=== PATIENT | female | born 1950 | race Caucasian/White ===

== ENCOUNTER 2016-04-06 04:37 | Outpatient (CLI) | payer MEDICARE ==
[2016-04-06] VITALS (7 sets, daily range): BP systolic 123–151; BP diastolic 56–69; Ht 157.5 cm; Wt 93.1 kg
[~2016-04-06] VITALS: Ht 157.5 cm; Wt 93.1 kg
--- NOTE | ~2016-04-06 | HEMODYNAMI ---
PATIENT:JOE TREVIÑO MEDICAL RECORD: [id number] : 46 [id number] ADMISSION DATE: 04/06/16 Generatedon:04/06/201618:11 Patient name: JOE TREVIÑO Patient #: [id number] SSN : : 1950 Date of study: 04/06/2016 Page: Of Hemodynamic Procedure Report Patient Data Patient Demographics Procedure consent was obtained First Name: JOE Gender: Female Last Name: KAMILA : 1950 Patient #: [id number] Age: 66 year(s) Race: Additional ID: [id number] Contact details [address]: [address] [place] [address] [id number] State: [place] City: [place] Zip code: [address] Past Medical History Allergies Allergen Reaction Date Comments Reported Other 04/18/2014 tetracycline, statins allergy Other 04/06/2016 statin,tetracycline,lyalla, allergy Admission Admission Data Admission Date: 04/06/2016 Admission Time: 4:37 Admit Source: Emergency department Room #: D.2128 Height (in.): 62 BSA: 1.9 (m2) Height (cm.): 157.48 BMI: 35.89 (kg/m2) Weight (lbs.): 196.21 Weight (kg.): 89 Lab Results Lab Result Date: 04/06/2016 Lab Result Time: 0:00 Biochemistry Name Units Result Min Max Creatinine mg/dl 0.6 --(*---)-- 0.6 1.3 CBC Name Units Result Min Max Hemoglobin g/dl 11.8 *-(----)-- 13.5 17.5 Procedure Procedure Types Cath Procedure Diagnostic Procedure [facility] w/Coronaries w/Grafts PCI Procedure Coronary Stent Initial Procedure Description Procedure Date Procedure Date: 04/06/2016 Procedure Start Time: 17:48 Procedure End Time: 18:10 Procedure Staff Name Function Óscar Chang MD Performing Physician Shahram Morton RN Nurse John Martinez RT Scrub Farhad Wan RT Monitor Pierre Abbott RT Monitor Procedure Data Cath Procedure Fluoroscopy Diagnostic fluoroscopy Total fluoroscopy Time: 6 time: 6 min min Diagnostic fluoroscopy Total fluoroscopy dose: dose: 1047 mGy 1047 mGy Contrast Material Contrast Material Type Amount (ml) Isovue 300 131 Entry Location Entry Primary Successful Side Size Upsize Upsize Entry Closure Succes sful Closure Location (Fr) 1 (Fr) 2 (Fr) Remarks Device Remarks Femoral Right 5 Fr 6 Fr Vascade artery Short Closure System Estimated blood loss: 10 ml Diagnostic catheters Device Type Used For End Catheter Placement Cordis 5Fr Pigtail Procedure Catheter (MP) Cordis 5Fr JL 4.0 Procedure Catheter (MP) Cordis 5Fr 3DRC Catheter Procedure (MP) Cordis Infinity 5Fr AR 2 Procedure MOD catheter Procedure Medications Medication Administration Route Dosage Oxygen NC 2 l/min Lidocaine 2% added to field 20 Heparin Flush Bag added to field 2 bags (1000units/500ml NS) 0.9% NaCl I.V. 100 ml/hr Fentanyl I.V. 50 mcg Versed I.V. 1 mg Versed I.V. 0.5 mg Fentanyl I.V. 25 mcg Heparin Bolus I.V. 4000 units Versed I.V. 0.5 mg Fentanyl I.V. 25 mcg Plavix P.O. 75 mg Hemodynamics Rest BSA: 1.9 (m2) HGB: 11.8 (g/dl) O2 Consumption: Estimated: 191.83 (ml/min) O2 Con sumption indexed: Estimated:100.96 (ml/min/m) Heart Rate: 92 (bpm) Snapshots Pre Cath Intra NCS Post Cath Vital Signs Time Heart Resp SPO2 etCO2 AS1haht NIBP (mmHg) Rhythm Pain Sedation Rate (ipm) (%) (mmHg) (mmHg) Status Level (bpm) 17:41:40 93 23 98 0 0 176/83(128) NSR 0 (11) 10(A) , No pain 17:45:59 89 17 94 0 0 160/79(113) NSR 0 (11) 10(A) , No pain 17:50:25 87 16 97 0 0 165/73(132) NSR 0 (11) 10(A) , No pain 17:54:47 87 15 98 0 0 151/75(118) NSR 0 (11) 9(A) , No pain 17:59:07 89 15 97 0 0 150/77(108) NSR 0 (11) 9(A) , No pain 18:03:27 90 16 97 0 0 149/79(114) NSR 0 (11) 9(A) , No pain 18:07:47 98 16 98 0 0 151/80(112) NSR 0 (11) 10(A) , No pain Medications Time Medication Route Dose Verified Delivered Reason Notes Effectiveness by by 17:41:55 Oxygen NC 2 Óscar Buffie used for l/min Charlene Morton RN procedure 17:42:01 Lidocaine 2% added 20ml Óscar Óscar for local to vial Charlene Chang MD anesthetic field 17:42:07 Heparin Flush added 2 Óscar Óscar used for Bag to bags Charleen Chang MD procedure (1000units/500ml field NS) 17:42:16 0.9% NaCl I.V. 100 Óscar Buffie Per physician ml/hr Charlene Morton RN 17:48:12 Versed I.V. 1 mg Óscar Buffie for sedation Charlene Morton RN 17:48:46 Fentanyl I.V. 50 Óscar Buffie for sedation mcg Charlene Morton RN 17:50:58 Versed I.V. 0.5 Óscar Buffie for sedation mg Charlene Morton RN 17:51:02 Fentanyl I.V. 25 Óscar Buffie for sedation mcg Charlene Morton RN 17:57:23 Heparin Bolus I.V. 4000 Óscar Poolie for units Charlene Morton RN anticoagulation 18:00:05 Versed I.V. 0.5 Óscar Buffie for sedation mg Charlene Morton RN 18:00:08 Fentanyl I.V. 25 Óscar Buffie for sedation mcg Charlene Morton RN 18:07:29 Plavix P.O. 75 mg Óscar Poolie for Charlene Morton RN antiplatelet therapy Procedure Log Time Note 17:05:24 Pierre Abbott RT(R) (CV) sent for patient. Start room use. 17:24:00 Admit Source: Emergency department 17:24:21 Diagnostic Cath status Urgent 17:24:34 Time tracking: Regular hours 17:24:39 Plan of Care:Hemodynamics will remain stable., Cardiac rhythm will remain stable., Comfort level will be maintained., Respiratory function will remain adequate., Patient/ family verbilizes understanding of procedure., Procedure tolerated without complication., Recovers from procedure without complications.. 17:24:45 Patient received from PCU to CCL 2 Alert and oriented. Tansferred to table in Supine position. 17:24:46 Warm blankets applied, and estevan hugger turned on for patient comfort. 17:24:46 Correct patient and procedure confirmed by team. 17:24:47 Signed procedure consent form obtained from patient. 17:24:48 ECG and BP/O2 sat monitors applied to patient. 17:40:22 Vital chart was started 17:41:55 Oxygen 2 l/min NC was given by Shahram Morton RN; used for procedure; 17:42:01 Lidocaine 2% 20ml vial added to field was given by Óscar Chang MD; for local anesthetic; 17:42:07 Heparin Flush Bag (1000units/500ml NS) 2 bags added to field was given by Óscar Chang MD; used for procedure; 17:42:16 0.9% NaCl 100 ml/hr I.V. was given by Shahram Morton RN; Per physician; 17:42:25 Baseline sample Acquired. 17:42:35 Rhythm: sinus rhythm 17:45:45 Pre-procedure instructions explained to patient. 17:45:46 Pre-op teaching completed and patient verbalized understanding. 17:45:47 Family in waiting room. 17:45:48 Patient NPO since Midnight. 17:46:13 Patient allergic to Other allergystatin,tetracycline,lyalla, 17:46:16 Is the patient allergic to Iodine/contrast media? No. 17:46:19 Is patient on blood thinner?Yes 17:46:21 ACC The patient was administered the following blood thiners within the last 24 hours: ACCPlavix 17:46:26 Patient diabetic? Yes. 17:46:27 If diabetic: On Metformin? No 17:46:32 Previous problem with sedation/anesthesia? No ? 17:46:33 Snore? No 17:46:36 Sleep apnea? No 17:46:37 Deviated septum? No 17:46:38 Opens mouth fully? Yes 17:46:39 Sticks out tongue? Yes 17:46:43 Airway obstruction? Yes copd 17:46:47 Dentures? Yes out 17:46:50 Pre procedure: right dorsailis pedis pulse 1+ Palpable, but thready & weak; easily obliterated 17:46:54 Patient pain scale 4/10 ?. 17:46:58 IV patent on arrival in right hand with 0.9% NaCl at [facility]. 17:47:22 Lab Result : Creatinine 0.6 mg/dl 17:47:22 Lab Result : Hemoglobin 11.8 g/dl 17:47:25 Lab results completed and on chart. 17:47:28 Right groin area was prepped with chlora-prep and draped in sterile fashion 17:47:29 Alarms reviewed by R. N. 17:47:30 Sharps counted by scrub and verified by R.N. 17:47:34 Use device set Femoral Dx 17:47:35 Tegaderm 4 x 4 opened to sterile field. 17:47:36 Acist Manifold opened to sterile field. 17:47:36 Acist Hand Control opened to sterile field. 17:47:37 Acist Syringe opened to sterile field. 17:47:38 Bag Decanter opened to sterile field. 17:47:38 Cardinal Cath Pack opened to sterile field. 17:47:39 Terumo 5Fr [place] Sheath opened to sterile field. 17:47:39 St Levi 260cm J .035 wire opened to sterile field. 17:47:40 Cordis Infinity 5Fr Multipack catheter opened to sterile field. 17:47:47 --------ALL STOP TIME OUT------ 17:47:48 Final Timeout: patient, procedure, and site verified with staff and physician. All members of the team are in agreement. 17:47:49 Right groin site verified by team. 17:47:52 Physical assessment completed. ASA score P 2 - A patient with mild systemic disease as per Óscar Chang MD. 17:47:55 Sedation plan: IV Moderate Sedation Versed, Fentanyl 17:48:02 Procedure started. 17:48:02 Full Disclosure recording started 17:48:05 Local anesthetic to right femoral artery with Lidocaine 2% by Óscar Chang MD.INITIAL ACCESS ONLY 17:48:12 Versed 1 mg I.V. was given by Shahram Morton RN; for sedation; 17:48:13 A 5 Fr sheath was inserted into the Right Femoral artery 17:48:17 j wire advanced. 17:48:46 Fentanyl 50 mcg I.V. was given by Shahram Morton RN; for sedation; 17:50:00 A Cordis 5Fr Pigtail Catheter (MP) was advanced over the wire and used for Procedure. 17:50:01 Zero performed for pressure channel P1 17:50:04 Zero performed for pressure channel P1 17:50:08 Zero performed for pressure channel P1 17:50:10 Zero performed for pressure channel P1 17:50:13 Zero performed for pressure channel P1 17:50:18 Zero performed for pressure channel P1 17:50:29 LV angiography performed. 17:50:30 LV gram done using RODRIGEZ 17:50:32 Zero performed for pressure channel P1 17:50:38 EF : 60 % 17:50:42 Zero performed for pressure channel P1 17:50:54 Injector settings: Ml/sec: 10, Volume: 20, 17:50:56 Catheter exchanged over wire. 17:50:58 Versed 0.5 mg I.V. was given by Shahram Morton RN; for sedation; 17:51:00 A Cordis 5Fr JL 4.0 Catheter (MP) was advanced over the wire and used for Procedure. 17:51:02 Fentanyl 25 mcg I.V. was given by Shahram Morton RN; for sedation; 17:51:17 LCA angiography performed. 17:52:03 Catheter removed. 17:52:11 A Cordis 5Fr 3DRC Catheter (MP) was advanced over the wire and used for Procedure. 17:52:37 TAY to LAD angiography performed. 17:53:09 Catheter removed. 17:53:39 A Cordis Infinity 5Fr AR 2 MOD catheter was advanced over the wire and used for Procedure. 17:55:04 SVG to Circ angiography performed. 17:55:42 Quintana Whisper J 300cm 0.014 guide wire opened to sterile field. 17:55:43 Terumo 6Fr [place] Sheath opened to sterile field. 17:55:44 Flyr BasixCompak Inflation Kit opened to sterile field. 17:55:48 SVG to RCA angiography performed. 17:56:34 Cordis 6FR XBLAD 3.5 guide catheter opened to sterile field. 17:57:07 Catheter removed. 17:57:09 Proceeding to intervention. 17:57:23 Heparin Bolus 4000 units I.V. was given by Shahram Morton RN; for anticoagulation; 17:57:25 Sheath upsized to a 6 Fr Short. 17:57:41 ACC PCI Site: pLAD has 80% stenosis. 17:57:45 ACC Pre-intervention INDIGO Flow is 3. 17:57:53 6 Fr XBLAD 3.5 guide catheter was inserted over the wire 17:58:23 WHISPER wire advanced. 17:59:56 Inflation number: 1 A EAP Technology Systemsick 3.0 X 20 balloon was prepped and advanced across the Prox LAD, then inflated to 19 SERA for 0:10 (min:sec). 17:59:58 Balloon removed over the wire. 18:00:05 Versed 0.5 mg I.V. was given by Shahrma Morton RN; for sedation; 18:00:08 Fentanyl 25 mcg I.V. was given by Shahram Morton RN; for sedation; 18:03:47 Inflation Number: 2 A Pivottronic Resolute 3.5 X 18 stent was prepped and advanced across the Prox LAD. The stent was deployed at 13 SERA for 0:10 (min:sec). 18:04:40 ACC Post-intervention INDIGO Flow is 3. 18:04:41 Stent catheter was removed intact over wire. 18:04:45 Wire removed. 18:04:46 Guide catheter removed. 18:05:43 Vascade 6/7 Fr Closure Device opened to sterile field. 18:06:00 Sheath removed intact; hemostasis achieved with Vascade Closure System to the Right Femoral artery. 18:06:03 Procedure ended.(Physican Out) 18:06:59 Fluoroscopy time 06.00 minutes. 18:07:05 Flurop Dose total: 1047 18:07:05 Fluoroscopy dose: 1047 mGy 18:07:14 Contrast amount:Isovue 300 131ml. 18:07:20 Sharps counted by scrub and verified by R.N. 18:07:23 Insertion/operative site no bleeding no hematoma. 18:07:29 Plavix 75 mg P.O. was given by Shahram Morton RN; for antiplatelet therapy; 18:07:29 Post-op/insertion site Right Femoral artery dressed using a 4 x 4 and Tegaderm. 18:07:34 Post right femoral artery:stable 18:07:38 Post Procedure Pulses reassessed and unchanged 18:07:44 Post-procedure physical assessment completed. ASA score P 2 - A patient with mild systemic disease as per Óscar Chang MD. 18:08:31 Patient Weight : 196.21 lbs 18:08:51 Patient Height : 62 inches 18:09:23 Procedure type changed to Cath procedure, Diagnostic procedure, LHC, LHC w/Coronaries w/Grafts, PCI procedure, Coronary Stent Initial 18:10:02 Post procedure rhythm: sinus rhythm 18:10:06 Estimated blood loss: 10 ml 18:10:07 Post procedure instruction explained to patient.Patient verbalizes understanding. 18:10:08 Patient needs reinforcement of post procedure teaching. 18:10:10 Procedure and supply charges have been captured, reviewed, submitted and are correct. 18:10:11 Vital chart was stopped 18:10:12 See physician's report for complete and final results. 18:10:16 Report given to PCU. 18:10:26 Patient transfered to PCU with Bed. 18:10:30 Procedure ended. 18:10:30 Full Disclosure recording stopped 18:10:38 ACC-PCI Only Patient was given prescriptions, or instructed by Óscar Chang MD to start/continue the following medications upon discharge: Aspirin, Plavix 18:10:41 End room use (Document Last) Intervention Summary Intervention Notes Time ActionType Lesion and Equipment Action# Pressure Duration Attributes Used 17:59:56 Inflate Prox LAD [place] 1 19 00:10 balloon Sci [place] 3.0 X 20 balloon 18:03:47 [address] stent Prox LAD Medtronic 2 13 00:10 Resolute 3.5 X 18 stent Device Usage Item Name Manufacture Quantity Catalog Number Hospital Part Current Mini [facility] Lot# / Charge Number Stock Stock Serial# Code Tegaderm 4 3M 1 [id number] 170536 815613 599834 5 x 4 Acist Acist 1 93723 757658 161615 429437 5 Manifold Medical Systems Inc Acist Hand Acist 1 07575 794314 996192 289320 5 Control Medical Systems Inc Acist Acist 1 16065 584629 289933 046407 20 Syringe Medical Systems Inc Bag Microtek 1 2002S 325430 70548 153724 5 Decanter Medical Inc. Cardinal Cardinal 1 [id number] 357356 76581 450432 5 Cath Pack Health Terumo 5Fr Terumo 1 [id number] 218012 523748 046612 [address] [facility] Levi 1 691870 690069 023756 759314 30 260cm J .035 wire Cordis Cardinal 1 [id number] 513376 81026 721934 30 Infinity Health 5Fr Multipack catheter Cordis 5Fr Cardinal 1 639024 5 Pigtail Health Catheter (MP) Cordis 5Fr Cardinal 1 071190 5 JL 4.0 Health Catheter (MP) Cordis 5Fr Cardinal 1 891692 5 3DRC Health Catheter (MP) Cordis Cardinal 1 [id number] 447226 263970 799985 20 Infinity Health 5Fr AR 2 MOD catheter Quintana Quintana 1 [id number] 083564 700875 884001 5 Whisper J Vascular 300cm 0.014 guide wire Terumo 6Fr Terumo 1 [id number] 808876 973194 764307 40 [place] Sheath [facility] 1 PT7462 912262 489404 270534 15 [id number] EffRx PharmaceuticalsIntermountain Medical Centerfarmaciamarket Medical Inflation Kit Cordis 6FR Cardinal 1 [id number] 598049 252070 467489 10 XBLAD 3.5 Health guide catheter [facility] Sci [facility] 1 [id number] 988841 939161 646198 1 Aarki 3.0 X 20 balloon Medtronic Medtronic 1 [id number] 137886 890465 9 [id number] Resolute 3.5 X 18 stent Vascade 08/19 Cardiva 1 [id number] 184541 239359 823185 5 Fr Closure Medical, Device Inc. Signature Audit [place] Stage Time Signature Unsigned Intra-Procedure 04/06/2016 Pierre Abbott 6:11:25 PM RT(R) (CV) Signatures Monitor : Farhad Wan RT Signature : Date : Time : Monitor : Pierre Abbott RT Signature : Date : Time : [address] [place] [address]
[2016-04-06 04:20] LABS: BASOPHILS 0 % (0.0-2.0); EOSINOPHILS 1.4 % (0-7); HEMATOCRIT 34.4 % (36.0-48.0); HEMOGLOBIN 11.8 g/dL (12-16); IMMATURE GRANULOCYTES 0.5 % (0-5); LYMPHOCYTES 24.5 % (15-50); MCH 29.6 pg (26.0-34.0); MCHC 34.3 g/dL (31.0-37.0); MCV 86.4 fL (80.0-100.0); MEAN PLATELET VOLUME 9.4 fL (7.4-10.4); MONOCYTES 7.6 % (2-11); PLATELET COUNT 103 10x3/uL (130-400); RBC 3.98 10x6/uL (4.00-5.40); RDW 14.5 % (11.5-14.5); WBC 5.6 10x3/uL (4.8-10.8)
[2016-04-06 04:21] LABS: APTT 32.3 SECONDS (22.8-39.4); INR 1.12 (0.85-1.17); PROTIME 14.3 SECONDS (11.6-15.0)
[2016-04-06 04:30] LABS: ALBUMIN 3.6 g/dL (3.4-5.0); ALKALINE PHOSPHATASE 153 U/L (46-116); ALT (SGPT) 46 U/L (10-68); BILIRUBIN - TOTAL 0.54 mg/dL (0.2-1.3); CALC OSMOLALITY 282 mosm/kg (275-300); CALCIUM 9.4 mg/dL (8.5-10.1); CARBON DIOXIDE 29.6 mmol/L (21.0-32.0); CHLORIDE - SERUM 101 mmol/L (98-107); CREATININE - SERUM 0.6 mg/dL (0.6-1.3); GLUCOSE 192 mg/dL (74-106); POTASSIUM - SERUM 3.9 mmol/L (3.5-5.1); SODIUM 140 mmol/L (136-145); UREA NITROGEN 9 mg/dL (7-18); eGFR NON AFRICAN AMERICAN > 90 mL/min (90-120)
[~2016-04-06 04:37] MED LIST: ADVAIR 100/501 DISK INH; ADVAIR 250/501 DISK INH; ASPIRIN 81 MG E81 MG PO; EXFORGE 5-160 M1 TAB PO; GLIMEPIRIDE1 MG PO; GLUCOPHAGE500 MG PO; HUMALOG MIX 50/53 ML SC; HYDROCODONE-APA1 TAB PO; IMDUR30 MG PO; ISOSORBIDE MONO30 M1 PO; KENALOG 0.1% CR15 GM TP; LANTUS SOL100 UNIT/1 SQ; LEVOTHROID50 MCG PO; PLAVIX75 MG PO; PRINZIDE 20/12.1 TA1; SYNTHROID75 MCG PO; TOPROL XL25 MG; TOUJEO SOL300 UNIT/1 SC; WELCHOL625 MG PO; ZOVIRAX200 MG PO
[2016-04-06 04:40] LABS: CHOL - HDL RATIO 4.6 ratio (2.3-4.1); CHOLESTEROL, TOTAL 216 mg/dL (0-200); CKMB 2.6 U/L (0.0-3.6); CREATINE KINASE 91 UL (21-215); HDL CHOLESTEROL 47 mg/dL (32-96); LDL CHOLESTEROL 146 mg/dL (0-100); LDL-HDL RATIO 3.1 ratio (1.5-3.5); PRO BNP 178 pg/mL (0-125); TRIGLYCERIDE 116 mg/dL (30-200)
[2016-04-06 04:41] LABS: TROPONIN-I < 0.017 ng/mL (0.000-0.060)
--- NOTE | 2016-04-06 05:17 | NUR ---
PT ARRIVED VIA W/C FROM ER WITH CHELSEA NAGY. SPOUSE AT BEDSIDE. WILL CONTINUE TO MONITOR.
[2016-04-06] MEDS ORDERED: PLAVIX75 MG PO (05:55)
[2016-04-06] MEDS ORDERED: NOVOLOG100 U/M1 SQ (05:57)
--- NOTE | 2016-04-06 06:00 | NUR ---
VSS. SR PER CM HR 84. ADMISSION ASSESSMENT. HISTORY AND HOME MED LIST COMPLETED. PT NPO UNTIL SEEN BY DR MENSAH. IV TO LAC SL. BED ALARM IN USE AND SPOUSE AT BEDSIDE. SR UP X2, CALL LIGHT WITHIN REACH. R SIDED WEAKNESS NOTED.
--- NOTE | 2016-04-06 07:33 | NUR ---
AM ROUNDING DONE, AROUSES EASILY. DENIES ANY PAIN AT PRESENT TIME. ON HEART MONITOR SHOWING SR, HR 83. ON ROOM AIR. SALINE LOCK SEEN TO LEFT FA. SPOUSE AT BEDSIDE. NPO AT PRESENT TIME. WILL CONTINUE TO MONITOR.
--- NOTE | 2016-04-06 07:49 | NUR ---
EKG DONE ORDERED AND PLACED ON CHART.
--- NOTE | 2016-04-06 08:57 | NUR ---
PERMITS FOR HEART CATH SIGNED AND WITNESSED.
--- NOTE | 2016-04-06 12:32 | NUR ---
INFORMED PATIENT THAT SHE COULD EAT A LIGHT LUNCH THEN NPO. FSBS IS 131, NO COVERAGE PER SLIDING SCALE.
--- NOTE | 2016-04-06 16:33 | NUR ---
STILL NPO. PRE-OP MEDS GIVEN. FSBS IS 167, WILL HOLD INSULIN NPO.
--- NOTE | 2016-04-06 17:06 | NUR ---
TO SUMMER CLERK VIA BED.
--- NOTE | 2016-04-06 18:31 | NUR ---
1830-RECEIVED BACK FROM [employer] WITH DRESSING, DRY AND INTACT, TO RIGHT GROIN. VERY SLEEPY, PLACED ON 2L PER NC. AT BEDSIDE. PPP AND STRONG. LAYING FLAT X 4 HOURS. WILL MONITOR.
--- NOTE | 2016-04-06 19:00 | NUR ---
BEDSIDE REPORT RECIEVED, PT LAYING FLAT IN BED PER ORDERS. AT BEDSIDE. WILL MONITOR.
--- NOTE | 2016-04-06 19:00 | NUR ---
INITIAL ASSESSMENT COMPLETE, PLEASE SEE FLOW SHEETS FOR DETAILS. WILL CONTINUE TO MONITOR.
--- NOTE | 2016-04-06 21:00 | NUR ---
RESTING, LAYING FLAT PER ORDERS. ATTEMPTED TO USE BED [place] AND WAS UNSUCCESSFUL. PT ASKED WHEN SHE WOULD BE ABLE TO SIT UP AND WAS TOLD AT 1030. STATED SHE WOULD LIKE TO GO HOME TONIGHT WELL. WILL CONTINUE TO MONITOR.
--- NOTE | 2016-04-07 01:03 | NUR ---
PT REATING, BED LOW AND LOCKED, CALL LIGHT IN REACH. ALARM ON. DENIES PAIN/NEEDS AT THIS TIME. WILL CONTINUE TO MONITOR.
--- NOTE | 2016-04-07 02:47 | NUR ---
PT SLEEPING, WILL CONTINUE TO MONITOR.
[2016-04-07 05:05] LABS: BASOPHILS 0.2 % (0.0-2.0); EOSINOPHILS 0.7 % (0-7); HEMATOCRIT 30.9 % (36.0-48.0); HEMOGLOBIN 10.5 g/dL (12-16); IMMATURE GRANULOCYTES 0.6 % (0-5); LYMPHOCYTES 15.9 % (15-50); MCV 88.3 fL (80.0-100.0); MEAN PLATELET VOLUME 9.5 fL (7.4-10.4); MONOCYTES 10.4 % (2-11); NEUTROPHILS 72.2 % (40-80); PLATELET COUNT 92 10x3/uL (130-400); RDW 14.7 % (11.5-14.5); WBC 5.4 10x3/uL (4.8-10.8)
[2016-04-07 05:12] VITALS: BP 139/75
[2016-04-07 05:13] LABS: CALC OSMOLALITY 282 mosm/kg (275-300); CALCIUM 8.8 mg/dL (8.5-10.1); CARBON DIOXIDE 30.3 mmol/L (21.0-32.0); CHLORIDE - SERUM 104 mmol/L (98-107); CREATININE - SERUM 0.7 mg/dL (0.6-1.3); GLUCOSE 181 mg/dL (74-106); SODIUM 139 mmol/L (136-145); eGFR NON AFRICAN AMERICAN 88 mL/min (90-120)
[2016-04-07 05:15] LABS: UREA NITROGEN 12 mg/dL (7-18)
[2016-04-07 05:42] LABS: PLATELET ESTIMATE DECREASED
--- NOTE | 2016-04-07 07:00 | NUR ---
RECEIVED REPORT. ASSUMED CARE OF PATIENT. CALL LIGHT WITHIN REACH. SITTING UP IN BED. READY TO BE DISCHARGED TO HOME THIS AM. NO S/S HEMATOMA TO RIGHT GROIN S/P CATH YESTERDAY. PEDAL PULSES PATENT BILATERALLY. RESP EVEN AND UNLABORED. NO DISTRESS.
[2016-04-07 08:31] VITALS: BP 133/67
[2016-04-07] MEDS ORDERED: PRINZIDE 20/12.1 TA1 PO (10:31)
[2016-04-07] MEDS ORDERED: TOPROL XL25 MG PO (10:31)
--- NOTE | 2016-04-07 11:00 | NUR ---
1140 20 GAUGE IV SITE TO RIGHT FOREARM D/C'D. CATHETER TIP INTACT. NO BLEEDING FROM SITE AFTER 2 MINUTES PRESSURE HELD DUE TO PLAVIX USER. TOLERATED IV SITE D/C WELL. 2X2 GAUZE APPLIED AND SECURED WITH TAPE. 1045 DISCHARGE INSTRUCTION PROVIDED TO PATIENT AND HER SPOUSE. VERBALIZED ALL INSTRUCTIONS.
--- NOTE | 2016-04-07 11:07 | NUR ---
PATIENT LEFT UNIT VIA WHEELCHAIR. PATIENT DISCHARGED TO HOME. PATIENT LEFT UNIT WITH ALL PERSONAL BELONGINGS. NO DISTRESS UPON LEAVING UNIT.
--- NOTE | 2016-04-13 14:16 | DS ---
PATIENT:JOE TREVIÑO :46 MEDICAL RECORD: [id number] DISCHARGE SUMMARY ADMISSION DATE: 04/06/16 DISCHARGE DATE: 04/07/16 DISCHARGE DIAGNOSES: 1. Unstable angina. 2. Coronary artery disease. 3. Percutaneous transluminal coronary angioplasty stent left anterior descending this admission. HOSPITAL COURSE: Ms. Treviño presents with anginal symptomatology, found to have significant disease with LAD leading into a non-grafted LAD diagonal and underwent successful PTCA stent of this territory. She had an uneventful postoperative course with no further anginal symptomatology. She was discharged home with no change in her medications as she is already on aspirin and Plavix. She will follow up with [facility] in 1 month. TRANSINT:[id number] Voice Confirmation ID: [id number] DOCUMENT ID: [id number] CARLITA MENSAH MD at 1416 CC: [id number] DICTATION DATE: 04/06/16 180 CULLET CRUSHER AND WASHER: 04/07/16 0259 DEP CLI 04/07/[address] [address]
--- NOTE | 2016-04-13 14:16 | OP ---
PATIENT NAME: JOE TREVIÑO MEDICAL RECORD: [id number] :46 LOCATION:D.OPS ADMISSION DATE: SURGEON: CARLITA MENSAH MD DATE OF OPERATION: 04/06/2016 PROCEDURES: 1. PTCA stent LAD. 2. Left heart catheterization. 3. Selective coronary angiography. 4. Vein graft angiography. 5. TAY angiography. 6. Left ventriculogram. INDICATION: Angina, unstable coronary artery disease. PROCEDURE IN DETAIL: After informed consent was obtained and after detailed explanation of risks, benefits as well as alternative therapies, the patient elected to proceed with angiogram and angioplasty. The right femoral area was prepped and draped in normal sterile fashion. The right femoral artery was cannulated via modified Seldinger technique with placement of 6-Albanian sheath. All catheters exchanged through this sheath. FINDINGS: Left ventriculogram was performed in standard 30-degree RODRIGEZ view, reveals good cardiac wall motion throughout all segments. Overall ejection fraction estimated at 60%. SELECTIVE CORONARY ANGIOGRAPHY: 1. Left main has no significant angiographic disease. 2. Left anterior descending leads into a non-grafted diagonal. There is a previously placed stent with 70% to 80% in-stent restenosis. 3. Left circumflex is totally occluded. 4. The LAD is then totally occluded after the diagonal. 5. TAY to the LAD is widely patent. 6. Vein graft to the circumflex is widely patent. 7. Right coronary is totally occluded. 8. Vein graft to the right coronary is widely patent with no significant disease in the vein graft or the distal RCA. PTCA stent of the proximal LAD: The stent used is a 3.5 x 18 mm Resolute taken to 19 atmospheres. Result was 0% residual stenosis. OVERALL IMPRESSION: Successful percutaneous transluminal coronary angioplasty stent of the left anterior descending going from 80% initial stenosis to 0% residual. TRANSINT:[id number] Voice Confirmation ID: [id number] DOCUMENT ID: [id number] OPERATIVE REPORT [id number] CLARAJOE JAIME CARLITA MENSAH MD at 1416 CC: [id number] DICTATION DATE: 04/06/16 1807 SILVER MINER: 04/06/161999 [facility] CLI 04/07/16 [place] [address]
== END 2016-04-07 11:07 | disposition home or self-care (01) ==
LOC: OBSVTIME → D.ER 04:37 → D.OPS 04:37 → D.M2 04:37 → OBSVTIME 04:37 → D.M2 04:37 → EDSTATUS 15:45 → D.OPS 04-07 11:07 → D.M2 04-07 11:07
PROVIDERS: Family Medicine
DX: I25.110 Atherosclerotic heart disease of native coronary artery with unstable angina pectoris (principal); I10 Essential (primary) hypertension; E11.9 Type 2 diabetes mellitus without complications; Z79.4 Long term (current) use of insulin; E78.5 Hyperlipidemia, unspecified; J44.9 Chronic obstructive pulmonary disease, unspecified; Z95.5 Presence of coronary angioplasty implant and graft; Z95.1 Presence of aortocoronary bypass graft; Z87.891 Personal history of nicotine dependence
CPT/HCPCS: 93459; C9600

== ENCOUNTER → 2016-05-28 18:00 | Outpatient (CLI) | payer MEDICARE ==
[~2016-05-28] VITALS: Ht 157.5 cm; Wt 90.7 kg
[2016-05-28] VITALS (11 sets, daily range): BP systolic 106–122; BP diastolic 52–69; Ht 157.5 cm; Wt 90.7 kg
--- NOTE | ~2016-05-28 | HEMODYNAMI ---
PATIENT:JOE TREVIÑO MEDICAL RECORD: [id number] : 46 LOCATION:[facility] [address] [facility]# [id number] ADMISSION DATE: 05/28/16 Generatedon:05/28/201612:54 Patient name: JOE TREVIÑO Patient #: [id number] SSN : : 1950 Date of study: 05/28/2016 Page: Of Hemodynamic Procedure Report Patient Data Patient Demographics Procedure consent was obtained First Name: JOE Gender: Female Last Name: KAMILA : 1950 Patient #: [id number] Age: 66 year(s) Race: Additional ID: [id number] Contact details [address]: [address] [place] [address] [id number] State: [place] City: [place] Zip code: [address] Past Medical History Allergies Allergen Reaction Date Comments Reported Other 04/18/2014 tetracycline, statins allergy Other 04/06/2016 statin,tetracycline,lyalla, allergy Admission Admission Data Admission Date: 05/28/2016 Admission Time: 2:04 Room #: D.2122 Weight (lbs.): 200.62 Weight (kg.): 91 Lab Results Lab Result Date: 05/28/2016 Lab Result Time: 0:00 Biochemistry Name Units Result Min Max BUN mg/dl 12 --(-*--)-- 7 18 Creatinine mg/dl 0.6 --(*---)-- 0.6 1.3 CBC Name Units Result Min Max Hemoglobin g/dl 8.6 *-(----)-- 13.5 17.5 Procedure Procedure Types Cath Procedure Diagnostic Procedure LHC LHC w/Coronaries w/Grafts PCI Procedure PTCA Initial Miscellaneous Procedures Moderate Sedation up to 45 minutes Procedure Description Procedure Date Procedure Date: 05/28/2016 Procedure Start Time: 12:17 Procedure End Time: 12:43 Procedure Staff Name Function Frandy Patterson MD Performing Physician Amber Nix RT Scrub Shahram Morton RN Nurse Sarmad Macdonald RT Monitor Procedure Data Cath Procedure Fluoroscopy Diagnostic fluoroscopy Total fluoroscopy Time: 6.5 time: 6.5 min min Diagnostic fluoroscopy Total fluoroscopy dose: dose: 1413 mGy 1413 mGy Contrast Material Contrast Material Type Amount (ml) Isovue 300 104 Entry Location Entry Primary Successful Side Size Upsize Upsize Entry Closure Succes sful Closure Location (Fr) 1 (Fr) 2 (Fr) Remarks Device Remarks Femoral Right 5 Fr 6 Fr Exoseal artery Short Diagnostic catheters Device Type Used For End Catheter Placement Cordis 5Fr JL 4.0 Left Coronary Catheter (MP) Angiography Diagnostic Infinity 5Fr SVG Angiography AR 2 MOD catheter Diagnostic Infinity 5Fr SVG Angiography IM catheter Cordis 5Fr Pigtail LV Angiography Catheter (MP) Procedure Complications No complications Procedure Medications Medication Administration Route Dosage Oxygen NC 3 l/min Lidocaine 2% added to field 20 Heparin Flush Bag added to field 2 bags (1000units/500ml NS) 0.9% NaCl I.V. 100 ml/hr Versed I.V. 1 mg Fentanyl I.V. 50 mcg Versed I.V. 1 mg Fentanyl I.V. 50 mcg Heparin Bolus I.V. 9000 units Fentanyl I.V. 25 mcg Hemodynamics Rest HGB: 8.6 (g/dl) Heart Rate: 72 (bpm) Pressure Samples Time Site Value (mmHg) Purpose Heart Use Rate(bpm) 12:26 LV 135/11,34 EDP 73 12:26 AO 128/63(88) Pullback 72 12:26 LV 128/10,28 Pullback 72 Gradients Valve Time Site 1 Site 2 Mean SEP/DFP Peak To Heart Use (mmHg) (sec/min) Peak Rate (mmHg) (bpm) Aortic 12:26 LV AO 5 14 0 72 128/10,28 128/63(88) Calculations Valve P-P Mean Valve Index Valve Source Name Gradient Area Flow (cm2) Aortic 0 5 0 5 Snapshots Pre Cath Intra NCS Post Cath Vital Signs Time Heart Resp SPO2 NIBP (mmHg) Rhythm Pain Sedation Rate (ipm) (%) Status Level (bpm) 11:57:50 70 23 100 159/80(120) NSR 0 (11) 10(A) , No pain 12:02:07 72 20 100 149/79(112) NSR 0 (11) 10(A) , No pain 12:06:19 69 19 98 135/80(99) NSR 0 (11) 10(A) , No pain 12:10:24 68 18 99 144/80(108) NSR 0 (11) 10(A) , No pain 12:14:36 67 16 99 127/73(101) NSR 0 (11) 9(A) , No pain 12:18:40 70 16 98 140/80(102) NSR 0 (11) 9(A) , No pain 12:22:50 71 17 98 141/74(102) NSR 0 (11) 9(A) , No pain 12:27:00 72 18 99 135/74(103) NSR 0 (11) 9(A) , No pain 12:31:08 72 16 99 141/76(118) NSR 0 (11) 9(A) , No pain 12:35:15 73 17 99 141/81(106) NSR 0 (11) 9(A) , No pain 12:39:25 70 16 98 133/75(106) NSR 0 (11) 9(A) , No pain 12:43:31 70 16 98 142/76(102) NSR 0 (11) 10(A) , No pain Medications Time Medication Route Dose Verified Delivered Reason Notes Effectiveness by by 12:02:28 Oxygen NC 3 Frandy Buffie used for l/min Amarjit Morton RN procedure 12:02:35 Lidocaine 2% added 20ml Frandy Frandy for local to vial Amarjit Patterson MD anesthetic field 12:02:42 Heparin Flush added 2 Frandy Frandy used for Bag to bags Amarjit Patterson MD procedure (1000units/500ml field NS) 12:02:50 0.9% NaCl I.V. 100 Frandy Buffie Per physician ml/hr Amarjit Morton RN 12:09:40 Versed I.V. 1 mg Frandy Buffie for sedation Amarjit Morton RN 12:09:46 Fentanyl I.V. 50 Frandy Buffie for sedation mcg Amarjit Morton RN 12:17:48 Versed I.V. 1 mg Frandy Buffie for sedation Amarjit Morton RN 12:17:52 Fentanyl I.V. 50 Frandy Buffie for sedation mcg Amarjit Morton RN 12:32:35 Heparin Bolus I.V. 9,000 Frandy Buffie for verifi ed units Amarjit Morton RN anticoagulation with dr patterson 12:37:38 Fentanyl I.V. 25 Frandy Omalley for sedation [facility] Amarjit Morton RN Procedure Log Time Note 11:30:37 Shahram Morton RN sent for patient. Start room use. 11:49:32 ACC Patient presents with Unstable Angina CCS Anginal Class 3--Marked limitation of physical activity, angina occurs with ordinary activity.. 11:49:34 Diagnostic Cath status Urgent 11:50:29 Time tracking: Regular hours 11:50:33 Plan of Care:Hemodynamics will remain stable., Cardiac rhythm will remain stable., Comfort level will be maintained., Respiratory function will remain adequate., Patient/ family verbilizes understanding of procedure., Procedure tolerated without complication., Recovers from procedure without complications.. 11:50:38 Patient received from PCU to CCL 2 Alert and oriented. Tansferred to table in Supine position. 11:50:49 Warm blankets applied, and estevan hugger turned on for patient comfort. 11:50:50 Correct patient and procedure confirmed by team. 11:50:54 Signed procedure consent form obtained from patient. 11:50:55 ECG and BP/O2 sat monitors applied to patient. 11:56:41 Vital chart was started 11:56:42 Full Disclosure recording started 12:00:29 Baseline sample Acquired. 12:00:34 Rhythm: sinus rhythm 12:00:47 H&P Date Dictated: 05/28/2016 Within 30 days and on chart.. 12:00:48 Pre-procedure instructions explained to patient. 12:00:48 Pre-op teaching completed and patient verbalized understanding. 12:00:59 Family in patients room. 12:01:00 Patient NPO since Midnight. 12:02:00 Is the patient allergic to Iodine/contrast media? No. 12:02:02 Is patient on blood thinner?Yes 12:02:08 ACC The patient was administered the following blood thiners within the last 24 hours: ACCPlavix 12:02:10 Patient diabetic? Yes. 12:02:11 If diabetic: On Metformin? Yes 12:02:14 If on Metformin: Last Dose? 05/27/2016 12:02:16 ----Pre-sedation anethsthesia assessment.---- 12:02:18 Previous problem with sedation/anesthesia? No ? 12:02:22 Snore? No 12:02:24 Sleep apnea? No 12:02:25 Deviated septum? No 12:02:27 Opens mouth fully? Yes 12:02:28 Oxygen 3 l/min NC was administered by Shahram Morton RN; used for procedure; 12:02:28 Sticks out tongue? Yes 12:02:34 Airway obstruction? Yes COPD 12:02:35 Lidocaine 2% 20ml vial added to field was administered by Frandy Patterson MD; for local anesthetic; 12:02:38 Dentures? No ? 12:02:40 Pre procedure: right dorsailis pedis pulse 1+ Palpable, but thready & weak; easily obliterated 12:02:42 Heparin Flush Bag (1000units/500ml NS) 2 bags added to field was administered by Frandy Patterson MD; used for procedure; 12:02:50 0.9% NaCl 100 ml/hr I.V. was administered by Shahram Morton RN; Per physician; 12:03:01 IV patent on arrival in left antecubital with 0.9% NaCl at 10ml/hr. 12:03:17 Patient pain scale 3/10 ?. 12:03:36 Lab Result : BUN 12 mg/dl 12:03:36 Lab Result : Creatinine 0.6 mg/dl 12:03:36 Lab Result : Hemoglobin 8.6 g/dl 12:03:39 Lab results completed and on chart. 12:03:42 Right groin area was prepped with chlora-prep and draped in sterile fashion 12:03:42 Alarms reviewed by R. N. 12:03:43 Sharps counted by scrub and verified by R.N. 12:04:56 Patient Weight : 91 kg 12:06:41 --------ALL STOP TIME OUT------ 12:06:42 Final Timeout: patient, procedure, and site verified with staff and physician. All members of the team are in agreement. 12:06:43 Right groin site verified by team. 12:06:50 Physical assessment completed. ASA score P 3 - A patient with severe systemic disease as per Frandy Patterson MD. 12:06:54 Sedation plan: IV Moderate Sedation Versed, Fentanyl 12:09:40 Versed 1 mg I.V. was administered by Shahram Morton RN; for sedation; 12:09:46 Fentanyl 50 mcg I.V. was administered by Shahram Morton RN; for sedation; 12:16:38 Use device set Femoral Dx 12:16:44 Acist Syringe opened to sterile field. 12:16:45 Bag Decanter opened to sterile field. 12:16:45 Medline Cath Pack opened to sterile field. 12:16:46 Terumo 5Fr [place] Sheath opened to sterile field. 12:16:46 St Levi 260cm J .035 wire opened to sterile field. 12:16:48 Acist Hand Control opened to sterile field. 12:16:49 Acist Manifold opened to sterile field. 12:16:57 Tegaderm 4 x 4 opened to sterile field. 12:17:35 Procedure started. 12:17:48 Versed 1 mg I.V. was administered by Shahram Morton RN; for sedation; 12:17:52 Fentanyl 50 mcg I.V. was administered by Shahram Morton RN; for sedation; 12:17:53 Local anesthetic to right femoral artery with Lidocaine 2% by Frandy Patterson MD.INITIAL ACCESS ONLY 12:18:01 A 5 Fr sheath was inserted into the Right Femoral artery 12:18:53 A Cordis 5Fr JL 4.0 Catheter (MP) was advanced over the wire and used for Left Coronary Angiography. 12:19:01 LCA angiography performed. 12:19:18 Catheter removed. 12:20:41 A Diagnostic Infinity 5Fr AR 2 MOD catheter was advanced over the wire and used for SVG Angiography. 12:21:08 SVG to RCA angiography performed. 12:21:59 SVG to Circ angiography performed. 12:22:23 SVG to LAD angiography performed. 12:22:37 Catheter removed. 12:23:03 Diagnostic Infinity 5Fr Multipack catheter opened to sterile field. 12:24:38 A Diagnostic Infinity 5Fr IM catheter was advanced over the wire and used for SVG Angiography. 12:24:53 TAY to LAD angiography performed. 12:24:56 Catheter removed. 12:26:20 A Cordis 5Fr Pigtail Catheter (MP) was advanced over the wire and used for LV Angiography. 12:26:25 LV angiography performed. 12:26:31 LV hemodynamics recorded. 12:26:37 EF : 50 % 12:: Injector settings: Ml/sec: 10, Volume: 20, 12:: LV gram done using RODRIGEZ 12:: Catheter removed. 12::42 ACC PCI Site: pLAD has 75% stenosis. 12::44 ACC Pre-intervention INDIGO Flow is 3. 12:30:51 Sheath upsized to a 6 Fr Short. 12::45 6 Fr XBLAD 3.5 guide catheter was inserted over the wire 12:32:35 Heparin Bolus 9,000 units I.V. was administered by Shahram Morton RN; for anticoagulation; verified with dr patterson 12:32:59 Cordis 6FR XBLAD 3.5 guide catheter opened to sterile field. 12:32:59 Terumo 6Fr [place] Sheath opened to sterile field. 12:33:00 [employer] BasixCompak Inflation Kit opened to sterile field. 12:33:00 High Pressure Extension Tubing (Amarjit) opened to sterile field. 12:33:00 Quintana BMW [place] 2 J-tip 300cm 0.014 guide wir opened to sterile field. 12:33:07 BMW 2 wire advanced. 12:37:02 Inflation number: 1 A Erving Sci Norman 3.5 X 15 balloon was prepped and advanced across the Prox LAD, then inflated to 14 SERA for 0:47 (min:sec). 12:37:38 Fentanyl 25 mcg I.V. was administered by Shahram Morton RN; for sedation; 12:38:28 Inflation number: 2 The Erving Sci Norman 3.5 X 15 balloon was reinflated across the Prox LAD, to 16 SERA for 0:29 (min:sec). 12:39:30 Balloon removed over the wire. 12:39:30 Wire removed. 12:39:30 Guide catheter removed. 12:39:32 ACC Post-intervention INDIGO Flow is 3. 12:39:37 Contrast amount:Isovue 300 104ml. 12:39:47 Sheath removed intact; hemostasis achieved with Exoseal to the Right Femoral artery. 12:40:00 Cordis 6Fr Exoseal opened to sterile field. 12:40:03 Procedure ended.(Physican Out) 12:40:28 Fluoroscopy time 06.50 minutes. 12:40:34 Flurop Dose total: 1413 12:40:34 Fluoroscopy dose: 1413 mGy 12:40:36 Sharps counted by scrub and verified by R.N. 12:40:38 Insertion/operative site no bleeding no hematoma. 12:40:41 Post-op/insertion site Right Femoral artery dressed using a 4 x 4 and Tegaderm. 12:40:47 Post right femoral artery:stable 12:40:49 Post Procedure Pulses reassessed and unchanged 12:40:51 Post procedure: right dorsailis pedis pulse 1+ Palpable, but thready & weak; easily obliterated. 12:40:55 Post procedure rhythm: sinus rhythm 12:40:56 Post procedure instruction explained to patient.Patient verbalizes understanding. 12:41:28 Procedure type changed to Cath procedure, Diagnostic procedure, LHC, LHC w/Coronaries w/Grafts, PCI procedure, PTCA Initial, Miscellaneous Procedures, Moderate Sedation up to 45 minutes 12:41:37 Procedure and supply charges have been captured, reviewed, submitted and are correct. 12:43:14 Procedure Complication : No complications 12:43:33 Vital chart was stopped 12:43:34 See physician's report for complete and final results. 12:43:37 Report given to PCU. 12:43:42 Patient transfered to PCU with Bed. 12:43:54 Procedure ended. 12:43:54 Full Disclosure recording stopped 12:44:06 ACC-PCI Only Patient was given prescriptions, or instructed by Frandy Patterson MD to start/continue the following medications upon discharge: Plavix 12:44:08 End room use (Document Last) Intervention Summary Intervention Notes Time ActionType Lesion and Equipment Action# Pressure Duration Attributes Used 12:37:02 Inflate Prox LAD Erving 1 14 00:47 balloon Sci Norman 3.5 X 15 balloon 12:38:28 Reinflate Prox LAD Erving 2 16 00:29 balloon Sci Norman 3.5 X 15 balloon Device Usage Item Name Manufacture Quantity Catalog Number Hospital Part Current Mini mal Lot# / Charge Number Stock Stock Serial# Code Acist Acist 1 29823 967376 790816 768229 20 Syringe Medical Shift [employer] Inc Bag Microtek 1 2002S 597853 88894 839263 5 Imagekind. Medline Cardinal 1 [id number] 846356 84041 157203 5 Cath Pack Health Terumo 5Fr Terumo 1 QXL666 213258 739819 669759 [address] Levi 1 324466 165588 526445 439008 30 260cm J .035 wire Acist Hand Acist 1 64715 466422 145431 840151 5 Control Medical Systems Inc Acist Acist 1 44232 372063 564546 652861 5 [employer] Medical Systems Inc Tegaderm 4 3M 1 1626W 443227 621385 006756 5 x 4 Cordis 5Fr Cardinal 1 168549 5 JL 4.0 Health Catheter (MP) Diagnostic Cardinal 1 [id number] 026119 935441 790688 20 Infinity Health 5Fr AR 2 MOD catheter Diagnostic Cardinal 1 JT6168 109866 51636 476852 30 Infinity Health 5Fr Multipack catheter Diagnostic Cardinal 1 [id number] 921154 049525 233848 5 Infinity Health 5Fr IM catheter Cordis 5Fr Cardinal 1 126612 5 Pigtail Health Catheter (MP) Cordis 6FR Cardinal 1 [id number] 245344 840477 341953 10 XBLAD 3.5 Health guide catheter Terumo 6Fr Terumo 1 BIJ320 721439 006645 560980 40 [place] Sheath Merit Merit 1 BF5121 079007 260628 811794 15 BasixCompak Medical Inflation Kit High Merit 1 [id number] 693445 80706 838186 10 Pressure Medical Extension Tubing (Patterson) Quintana BMW Quintana 1 [id number] 264621 120473 942376 5 [place] 2 Vascular J-tip 300cm 0.014 guide wir Erving Sci Erving 1 [id number] 559329 099368 462656 1 [id number] [employer]OVE [employer] 3.5 X 15 balloon Cordis 6Fr Cardinal 1 EX600 520582 574022 326583 10 Lellan Signature Audit [place] Stage Time Signature Unsigned Intra-Procedure 05/28/2016 Sarmad Macdonald 12:54:39 PM RT(R) Signatures Monitor : Sarmad Macdonald RT Signature : Date : Time : [facility] [address] [place] [address]
[2016-05-28 01:29] LABS: BASOPHILS 0.2 % (0.0-2.0); EOSINOPHILS 0.8 % (0-7); HEMATOCRIT 29.1 % (36.0-48.0); HEMOGLOBIN 9.5 g/dL (12-16); IMMATURE GRANULOCYTES 0.4 % (0-5); LYMPHOCYTES 18.2 % (15-50); MCH 27.6 pg (26.0-34.0); MCHC 32.6 g/dL (31.0-37.0); MCV 84.6 fL (80.0-100.0); MEAN PLATELET VOLUME 9.9 fL (7.4-10.4); NEUTROPHILS 71.4 % (40-80); PLATELET COUNT 93 10x3/uL (130-400); RBC 3.44 10x6/uL (4.00-5.40); RDW 15.8 % (11.5-14.5); WBC 5.1 10x3/uL (4.8-10.8)
[2016-05-28 01:38] LABS: ALBUMIN 3.7 g/dL (3.4-5.0); ALKALINE PHOSPHATASE 138 U/L (46-116); ALT (SGPT) 36 U/L (10-68); BILIRUBIN - TOTAL 0.48 mg/dL (0.2-1.3); CALC OSMOLALITY 283 mosm/kg (275-300); CALCIUM 8.9 mg/dL (8.5-10.1); CARBON DIOXIDE 29.8 mmol/L (21.0-32.0); CHLORIDE - SERUM 101 mmol/L (98-107); CREATININE - SERUM 0.6 mg/dL (0.6-1.3); POTASSIUM - SERUM 4.4 mmol/L (3.5-5.1); PROTEIN - SERUM 7.7 g/dL (6.4-8.2); SODIUM 138 mmol/L (136-145); UREA NITROGEN 10 mg/dL (7-18); eGFR NON AFRICAN AMERICAN > 90 mL/min (90-120)
[2016-05-28 01:40] LABS: GLUCOSE 267 mg/dL (74-106)
[2016-05-28 01:49] LABS: CHOLESTEROL, TOTAL 203 mg/dL (0-200); CKMB 1.6 U/L (0.0-3.6); CREATINE KINASE 51 UL (21-215); HDL CHOLESTEROL 51 mg/dL (32-96); LDL CHOLESTEROL 130 mg/dL (0-100); LDL-HDL RATIO 2.5 ratio (1.5-3.5); TRIGLYCERIDE 110 mg/dL (30-200)
[2016-05-28 01:50] LABS: TROPONIN-I < 0.017 ng/mL (0.000-0.060)
--- NOTE | 2016-05-28 02:30 | NUR ---
REPORT CALLED TO FLOOR FROM ER.
--- NOTE | 2016-05-28 04:14 | NUR ---
PT ARRIVED ON FLOOR AT 0240. ADMIT TO ROOM 2122. ACCOMPANIED BY . ADMISSION HISTORY AND ASSESSMENT COMPLETED. TELEMETRY STARTED, SHOWING SR 70'S.
--- NOTE | 2016-05-28 05:46 | NUR ---
EKG PERFORMED. AM LABS DRAWN PER RULING TECHNICIAN. AT BEDSIDE.
[2016-05-28 06:51] LABS: BASOPHILS 0.2 % (0.0-2.0); EOSINOPHILS 1.1 % (0-7); HEMATOCRIT 26.8 % (36.0-48.0); HEMOGLOBIN 8.6 g/dL (12-16); IMMATURE GRANULOCYTES 0.5 % (0-5); LYMPHOCYTES 18.1 % (15-50); MCH 27.4 pg (26.0-34.0); MCHC 32.1 g/dL (31.0-37.0); MCV 85.4 fL (80.0-100.0); MEAN PLATELET VOLUME 10.4 fL (7.4-10.4); MONOCYTES 12.7 % (2-11); NEUTROPHILS 67.4 % (40-80); PLATELET COUNT 93 10x3/uL (130-400); RBC 3.14 10x6/uL (4.00-5.40); WBC 5.6 10x3/uL (4.8-10.8)
[2016-05-28 07:07] LABS: CKMB 1.3 U/L (0.0-3.6); CREATINE KINASE 47 UL (21-215); TROPONIN-I 0.018 ng/mL (0.000-0.060)
[2016-05-28 07:12] LABS: CALC OSMOLALITY 279 mosm/kg (275-300); CALCIUM 8.4 mg/dL (8.5-10.1); CARBON DIOXIDE 31.5 mmol/L (21.0-32.0); CHLORIDE - SERUM 103 mmol/L (98-107); CREATININE - SERUM 0.6 mg/dL (0.6-1.3); PLATELET ESTIMATE DECREASED; POTASSIUM - SERUM 4.2 mmol/L (3.5-5.1); PRO BNP 382 pg/mL (0-125); SODIUM 141 mmol/L (136-145); UREA NITROGEN 12 mg/dL (7-18); eGFR NON AFRICAN AMERICAN > 90 mL/min (90-120)
[2016-05-28 07:13] LABS: GLUCOSE 84 mg/dL (74-106)
--- NOTE | 2016-05-28 07:30 | NUR ---
RECEIVED PT IN BED AAOX4 RESP UNLABORED PT DENIES ANY NEEDS OR DISCOMFORT AT THIS TIME
--- NOTE | 2016-05-28 11:25 | NUR ---
PT TO NANOSYSTEMS ENGINEER VIA BED IN STABLE CONDITION
--- NOTE | 2016-05-28 12:13 | NUR ---
RECEIVED PT BACK FROM PROGRESSIVE CARE UNIT REGISTERED NURSE IN STABLE CONDITION VSS RT GROIN C/D/I NO S/S OF BLEEDING
--- NOTE | 2016-05-28 12:15 | NUR ---
FSBS NOT DONE PT IN [place] ACQUISITION ANALYST
[~2016-05-28 18:00] MED LIST changes: +ALDACTONE25 MG PO; +NOVOLOG100 U/M1 SQ; +PRINZIDE 20/12.1 TA1 PO; +TOPROL XL25 MG PO; +VALTREX500 MG PO
--- NOTE | 2016-05-28 18:00 | NUR ---
REVIWED DISCHARGE INSTRUCTIONS PT STATES UNDERSTANDING COPY GIVEN TO PT SALINE LOCK DCD TO LAC WITH IV CATHETER INTACT NO REDNESS OR EDEMA NOTED TO SITE PT DISCHARGED HOME IN STABLE CONDITION VIA W/C WITH ALL PERSONAL BELONGINGS
--- NOTE | 2016-06-02 08:17 | OP ---
PATIENT NAME: JOE TREVIÑO MEDICAL RECORD: [id number] :46 LOCATION:D.OPS ADMISSION DATE: SURGEON: FAN MATIAS M.D. DATE OF OPERATION: 05/28/2016 PROCEDURES PERFORMED: 1. Selective coronary angiography. 2. Left heart catheterization with ventriculogram. 3. Left internal mammary artery injection. 4. Bypass angiography. 5. PTCA of the left main. INDICATION: A 66-year-old woman who presents with recurrent angina. EQUIPMENT USED: A 5-Angolan JL4, AR modified catheter, mammary catheter, pigtail catheter. INTERVENTION: A 6-Angolan XB LAD guide, BMW guide wire, 3.5 x 15 mm Winston balloon. TECHNIQUE: A 5-Angolan sheath was inserted in retrograde fashion in the right common femoral artery. Next, selective coronary angiography was performed in standard view using 5-Angolan JL4 and AR modified catheter. Bypass angiography was performed using an AR modified catheter. The internal mammary was selected with internal mammary catheter. Finally, left heart catheterization was performed using pigtail catheter. CORONARY ANATOMY: 1. Left main: Left main trunk is large in caliber. It has been stented. There is a hazy 70% stenosis just beyond the origin. 2. LAD: This vessel has been stented in the proximal segment. The stents are patent. However, the vessel is 100% occluded in mid segment beyond the first diagonal branch. 3. Circumflex: This vessel is occluded at the origin. 4. Right coronary: This vessel is occluded at the origin. 5. Saphenous vein graft to the PDA. This graft is widely patent throughout its course. 6. Saphenous vein graft to obtuse marginal branch. This graft is widely patent throughout its course. 7. Left internal mammary artery to LAD: This graft is widely patent throughout its course. Beyond the anastomosis, the vessel is diffusely diseased, but appears unchanged from previous study. 8. Left ventricle: Left ventricle is normal in size and function. No wall motion and no abnormalities are noted. Estimated ejection fraction was 55%. DESCRIPTION OF INTERVENTION: A 6-Angolan sheath was inserted in retrograde fashion in the right common femoral artery. Next, 100 units per kilogram of heparin was infused. A 6-Angolan XB LAD guide was advanced and engaged the left main coronary artery. Next, a BMW guide wire was placed in the distal LAD. Left main stent was predilated with a 3.5 x 15 mm Winston balloon at 16 atmospheres. Injections revealed about 30% residual stenosis. The hazy area resolved following balloon dilation. It was felt that further high-pressure inflation mild result in perforation in the vessel. At this point, she had brisk flow down the vessel and the guidewire and guide were removed. OPERATIVE REPORT [id number] JOE TREVIÑO IMPRESSION: Successful percutaneous transluminal coronary angioplasty of the left main for in-stent restenosis. TRANSINT:[id number] Voice Confirmation ID: [id number] DOCUMENT ID: [id number] FAN MATIAS M.D. at 0817 CC: [id number] DICTATION DATE: 05/28/16 1250 STRETCH MACHINE OPERATOR: 05/28/163 DEP CLI 05/28/16 [id number] [place] [address]
== END | disposition home or self-care (01) ==
LOC: OBSVTIME → D.OPS 00:44 → D.ER 00:44 → D.M2 02:04 → OBSVTIME 02:04 → D.ER 02:04 → EDSTATUS 08:30 → D.M2 18:00 → D.OPS 18:00 → D.M2 18:00
PROVIDERS: Emergency Medicine; Internal Medicine Cardiovascular Disease
DX: I25.110 Atherosclerotic heart disease of native coronary artery with unstable angina pectoris (principal); I69.951 Hemiplegia and hemiparesis following unspecified cerebrovascular disease affecting right dominant side; T82.855A Stenosis of coronary artery stent, initial encounter; Y83.8 Other surgical procedures as the cause of abnormal reaction of the patient, or of later complication, without mention of misadventure at the time of the procedure; E11.9 Type 2 diabetes mellitus without complications; Z79.4 Long term (current) use of insulin; J44.9 Chronic obstructive pulmonary disease, unspecified; I10 Essential (primary) hypertension; E78.5 Hyperlipidemia, unspecified

== ENCOUNTER 2016-05-29 02:28 | Inpatient (IN) | payer MEDICARE ==
[2016-05-29] VITALS (7 sets, daily range): BP systolic 112–145; BP diastolic 52–57; Ht 157.5 cm; Wt 89.5 kg
[~2016-05-29] VITALS: Ht 157.5 cm; Wt 89.5 kg
[~2016-05-29 02:28] MED LIST changes: -ALDACTONE25 MG PO; -VALTREX500 MG PO
[2016-05-29 03:05] LABS: BASOPHILS 0.2 % (0.0-2.0); EOSINOPHILS 0.3 % (0-7); HEMATOCRIT 29.1 % (36.0-48.0); HEMOGLOBIN 9.2 g/dL (12-16); IMMATURE GRANULOCYTES 0.8 % (0-5); LYMPHOCYTES 6.1 % (15-50); MCH 27.1 pg (26.0-34.0); MCHC 31.6 g/dL (31.0-37.0); MCV 85.6 fL (80.0-100.0); MEAN PLATELET VOLUME 9.9 fL (7.4-10.4); MONOCYTES 6.9 % (2-11); NEUTROPHILS 85.7 % (40-80); PLATELET COUNT 94 10x3/uL (130-400); RDW 16.2 % (11.5-14.5); WBC 6.6 10x3/uL (4.8-10.8)
[2016-05-29 03:15] LABS: KETONE - SERUM NEGATIVE (NEGATIVE)
[2016-05-29 03:38] LABS: CALCIUM 8.3 mg/dL (8.5-10.1); CARBON DIOXIDE 26.5 mmol/L (21.0-32.0); CHLORIDE - SERUM 100 mmol/L (98-107); CREATINE KINASE 87 UL (21-215); CREATININE - SERUM 0.7 mg/dL (0.6-1.3); POTASSIUM - SERUM 4.5 mmol/L (3.5-5.1); PRO BNP 355 pg/mL (0-125); SODIUM 136 mmol/L (136-145); eGFR NON AFRICAN AMERICAN 88 mL/min (90-120)
[2016-05-29 03:39] LABS: CALC OSMOLALITY 290 mosm/kg (275-300); GLUCOSE 429 mg/dL (74-106); TROPONIN-I 0.325 ng/mL (0.000-0.060); UREA NITROGEN 16 mg/dL (7-18)
--- NOTE | 2016-05-29 05:51 | NUR ---
0425 ADMIT TO ROOM 2119 FROM ER. ACCOMPANIED BY ER STAFF AND PT'S . PT WAS INPATIENT YESTERDAY AND IS RETURNING NOW FOR EXTREME SHORTNESS OF BREATH. ADMISSION HISTORY AND ASSESSMENT UPDATED AND COMPLETED. HOME MEDS REVIEWED. PT STATES SHE TOOK ONLY THE MEDS FROM THE HOSPITAL AND THEN WENT HOME AND BY 9PM WAS HEADED BACK TO THE ER. DR MATIAS CURRENTLY ON THE FLOOR SEEING PATIENT.
--- NOTE | 2016-05-29 07:30 | NUR ---
RESTING QUIETLY EYES CLOSED RESP UNLABORED SKIN W/D NAD NOTED
--- NOTE | 2016-05-29 09:45 | NUR ---
REPORTED TO DR YEPEZ TROPONIN ELEVATED TO 3.902 PT C/O NO PAIN VSS
[2016-05-29 11:30] LABS: BASOPHILS 0 % (0.0-2.0); EOSINOPHILS 0 % (0-7); HEMATOCRIT 27.9 % (36.0-48.0); HEMOGLOBIN 8.9 g/dL (12-16); IMMATURE GRANULOCYTES 0.8 % (0-5); LYMPHOCYTES 4.5 % (15-50); MCH 27.1 pg (26.0-34.0); MCHC 31.9 g/dL (31.0-37.0); MCV 84.8 fL (80.0-100.0); MEAN PLATELET VOLUME 10.1 fL (7.4-10.4); MONOCYTES 1.9 % (2-11); NEUTROPHILS 92.8 % (40-80); PLATELET COUNT 87 10x3/uL (130-400); RBC 3.29 10x6/uL (4.00-5.40); RDW 16.3 % (11.5-14.5); WBC 6.4 10x3/uL (4.8-10.8)
[2016-05-29 11:31] LABS: CALC OSMOLALITY 286 mosm/kg (275-300); CALCIUM 8.6 mg/dL (8.5-10.1); CARBON DIOXIDE 26.6 mmol/L (21.0-32.0); CHLORIDE - SERUM 101 mmol/L (98-107); CREATININE - SERUM 0.6 mg/dL (0.6-1.3); POTASSIUM - SERUM 4.9 mmol/L (3.5-5.1); SODIUM 136 mmol/L (136-145); UREA NITROGEN 17 mg/dL (7-18); eGFR NON AFRICAN AMERICAN > 90 mL/min (90-120)
[2016-05-29 11:32] LABS: GLUCOSE 324 mg/dL (74-106)
--- NOTE | 2016-05-29 12:14 | NUR ---
Nutrition follow-up: Diet: ADA consistent CHO PO intake ~50% of meals Labs reviewed Visited with pt during meal rounds. Pt happy with meals; however, pt is worried about her health. Will continue to provide food choices and honor food preferences. RDN following.
--- NOTE | 2016-05-29 12:20 | NUR ---
fsbs 330 humalog 12 units given sq lt arm
--- NOTE | 2016-05-29 13:13 | NUR ---
scdS on pt and patent
--- NOTE | 2016-05-29 16:08 | NUR ---
FSBS 282 HUMALOG 10 UNITS GIVEN SQ ABDOMEN
[2016-05-29 18:08] LABS: % SATURATION 16 % (15-55); IRON 67 ug/dl (35-150); TOTAL IRON BIND CAPACITY 396 ug/dl (260-445); UNSAT IRON BIND CAPACITY 329 ug/dl (150-375)
[2016-05-30 05:23] LABS: BASOPHILS 0.3 % (0.0-2.0); EOSINOPHILS 0.4 % (0-7); HEMATOCRIT 26.3 % (36.0-48.0); HEMOGLOBIN 8.1 g/dL (12-16); IMMATURE GRANULOCYTES 0.6 % (0-5); LYMPHOCYTES 19.5 % (15-50); MCH 26.7 pg (26.0-34.0); MCHC 30.8 g/dL (31.0-37.0); MCV 86.8 fL (80.0-100.0); MEAN PLATELET VOLUME 9.7 fL (7.4-10.4); NEUTROPHILS 67.2 % (40-80); PLATELET COUNT 92 10x3/uL (130-400); RBC 3.03 10x6/uL (4.00-5.40); RDW 16.4 % (11.5-14.5); WBC 6.8 10x3/uL (4.8-10.8)
[2016-05-30 05:42] LABS: CALCIUM 8.7 mg/dL (8.5-10.1); CARBON DIOXIDE 32.4 mmol/L (21.0-32.0); CHLORIDE - SERUM 104 mmol/L (98-107); SODIUM 140 mmol/L (136-145)
[2016-05-30 05:44] LABS: CALC OSMOLALITY 285 mosm/kg (275-300); CREATININE - SERUM 0.8 mg/dL (0.6-1.3); GLUCOSE 112 mg/dL (74-106); UREA NITROGEN 29 mg/dL (7-18); eGFR NON AFRICAN AMERICAN 75 mL/min (90-120)
[2016-05-30 05:53] VITALS: BP 122/56
--- NOTE | 2016-05-30 07:58 | NUR ---
AWAKE AND ASSISTED PATIENT TO BR. LAUREN WELL. PT VOIDED 800CC OF DARK YELLOW URINE. O2 ON. MONITOR SHOWS SR@ 85. WILL CONTINUE TO MONITOR. PATIENT REQUESTED SCDS TO BE REMOVED. SCDS REMOVED AND SKIN ASSESSED.SKIN ASSESSMENT WITHOUT ANY SORES OR SCABS.
[2016-05-30 09:19] VITALS: BP 115/54
[2016-05-30 12:21] VITALS: BP 129/60
[2016-05-30 15:49] VITALS: BP 113/53
--- NOTE | 2016-05-30 17:58 | NUR ---
PT IS ALERT. ASSESSMENT DONE PER FLOWSHEET. NO OTHER NEEDS AT THIS TIME. WILL CONTINUE TO MONTIOR.
--- NOTE | 2016-05-30 18:25 | NUR ---
BLOOD DONE. PATIENT LAUREN WELL WITHOUT ANY REACITONS. UP TO BR LAUREN. WELL.
[2016-05-30 21:37] VITALS: BP 140/56
--- NOTE | 2016-05-30 23:18 | NUR ---
INITIAL ROUNDS COMPLETED AT 1915 HRS. PT DENIED ANY DISCOMFORT. ASSESSMENT COMPLETED AT 2029 RHS. VSS. SR PER CM HR 90. IV TO R WRIST SL. O2 3LNC. LUNGS DIMINISHEDIN BASES BILAT. R GROIN CLEAN,DRY AND INTACT. GOOD PERIPHERAL PULSES. FEET WARM TO TOUCH. PM FSBS 151. HUMALOG 4 UNITS SUB-Q GIVEN PER S/S FOR BS 151. PM MEDS GIVEN. PT CURRENTLY RESTING WITH EYES CLOSED. RESP EVEN AND REGULAR. SR UP X2,CALL LIGHT WITHIN REACH.
--- NOTE | 2016-05-31 00:02 | NUR ---
PT RESTING WITH EYES CLOSED. RESP EVEN AND REGULAR. SR UP X2, CALL LIGHTWITHIN REACH.
[2016-05-31 00:30] VITALS: BP 131/63
--- NOTE | 2016-05-31 01:57 | NUR ---
PT RESTING WITH EYES CLOSED. RESP EVEN AND REGULAR. SR UP X2, CALL LIGHT WITHIN REACH.
--- NOTE | 2016-05-31 04:20 | NUR ---
PT AWAKE; DENIES ANY DISCOMFORT. WILL CONTINUE TO MONITOR.
[2016-05-31 04:30] VITALS: BP 117/51
[2016-05-31 06:03] LABS: BASOPHILS 0 % (0.0-2.0); HEMATOCRIT 30.7 % (36.0-48.0); IMMATURE GRANULOCYTES 0.5 % (0-5); LYMPHOCYTES 18.8 % (15-50); MCH 27.1 pg (26.0-34.0); MCHC 31.9 g/dL (31.0-37.0); MEAN PLATELET VOLUME 10.4 fL (7.4-10.4); MONOCYTES 11.1 % (2-11); NEUTROPHILS 68.6 % (40-80); PLATELET COUNT 110 10x3/uL (130-400); RBC 3.61 10x6/uL (4.00-5.40); RDW 16.1 % (11.5-14.5)
[2016-05-31 06:11] LABS: HEMOGLOBIN 9.8 g/dL (12-16)
[2016-05-31 06:35] LABS: CALC OSMOLALITY 277 mosm/kg (275-300); CARBON DIOXIDE 31.6 mmol/L (21.0-32.0); CHLORIDE - SERUM 101 mmol/L (98-107); CREATININE - SERUM 0.7 mg/dL (0.6-1.3); GLUCOSE 142 mg/dL (74-106); POTASSIUM - SERUM 3.9 mmol/L (3.5-5.1); SODIUM 136 mmol/L (136-145); UREA NITROGEN 25 mg/dL (7-18); eGFR NON AFRICAN AMERICAN 88 mL/min (90-120)
--- NOTE | 2016-05-31 06:35 | NUR ---
VSS THROUGHOUT NIGHT. SR PER CM. PT DENIED ANY DISCOMFORT. AM FSBS 168. 4 UITS HUMALOG GIVNE SUB-Q TO UPPER R ARM. NEEDS MET; WILL CONTINUE TO MONITOR.
[2016-05-31 06:43] LABS: APPEARANCE CLOUDY (CLEAR); BILIRUBIN NEGATIVE (NEGATIVE); COLOR YELLOW (YELLOW); GLUCOSE NEGATIVE (NEGATIVE); KETONE NEGATIVE (NEGATIVE); LEUKOCYTE ESTERASE 2+ (NEGATIVE); NITRITE NEGATIVE (NEGATIVE); PROTEIN TRACE mg/dL (NEGATIVE)
[2016-05-31 06:44] LABS: BACTERIA MANY /hpf (NONE SEEN); EPITHELIAL CELLS 0-5 /hpf (0-5); RED CELLS - URINE 0-5 /hpf (0-5); WHITE CELLS - URINE 25-50 /hpf (0-5)
--- NOTE | 2016-05-31 07:26 | NUR ---
PT SITTNG UP IN BED WATCHING TV DENIES NEEDS WILL CONT TO MONITOR
[2016-05-31 08:12] LABS: MAGNESIUM - SERUM 1.7 mg/dL (1.8-2.4); PHOSPHOROUS 4.6 mg/dL (2.5-4.9)
[2016-05-31 08:59] VITALS: BP 102/46
[2016-05-31 12:14] VITALS: BP 121/55
[2016-05-31 16:13] VITALS: BP 127/54
--- NOTE | 2016-05-31 18:15 | NUR ---
PT SITTING UP IN BED TALKING ON PHONE WITH DENIES NEEDS
--- NOTE | 2016-05-31 20:09 | NUR ---
INITIAL ROUNDS COMPETED AT 1910 HRS. PT DENIED ANY DISCOMFORT. ASSESMENT COMPLETED AT 194 HRS. SR PER CM HR 97. O2 3LNC. LUNGS DIMINISHED IN BASES BILAT. R GROIN WITH BRUISE NOTED. SPOUSE AT BEDSIDE. SR UP X2, CALL LIGHT WITHIN REACH.
[2016-05-31 21:37] VITALS: BP 153/71
--- NOTE | 2016-06-01 00:27 | NUR ---
PT RESTING WITH EYES CLOSED. RESP EVEN AND REGULAR. SR UP X2,CALL LIGHT WITHIN REACH.
[2016-06-01 00:30] VITALS: BP 150/63
--- NOTE | 2016-06-01 04:19 | NUR ---
PT AWAKE; DENIES ANY DISCOMFORT. WILL CONTINUE TO MONITOR.
[2016-06-01 04:45] VITALS: BP 139/58
[2016-06-01 06:19] LABS: BASOPHILS 0.2 % (0.0-2.0); EOSINOPHILS 1.2 % (0-7); HEMATOCRIT 31.2 % (36.0-48.0); HEMOGLOBIN 10.1 g/dL (12-16); IMMATURE GRANULOCYTES 0.4 % (0-5); LYMPHOCYTES 13.1 % (15-50); MCH 26.9 pg (26.0-34.0); MCHC 32.4 g/dL (31.0-37.0); MCV 83.2 fL (80.0-100.0); MEAN PLATELET VOLUME 10.2 fL (7.4-10.4); NEUTROPHILS 67.1 % (40-80); PLATELET COUNT 105 10x3/uL (130-400); RBC 3.75 10x6/uL (4.00-5.40); RDW 15.7 % (11.5-14.5); WBC 5.2 10x3/uL (4.8-10.8)
--- NOTE | 2016-06-01 06:37 | NUR ---
VSS THROUGHOUTNIGHT. SR PER CM. PT DENIED ANY DISCOMFORT AM FSBS 223. NO COVERAGE PT NPO FOR CT OF ABD THIS AM. NEEDS MET; WILL CONTINUE TO MONITOR.
[2016-06-01 06:43] LABS: CALC OSMOLALITY 282 mosm/kg (275-300); CALCIUM 9.3 mg/dL (8.5-10.1); CARBON DIOXIDE 32.5 mmol/L (21.0-32.0); CHLORIDE - SERUM 97 mmol/L (98-107); CREATININE - SERUM 0.8 mg/dL (0.6-1.3); GLUCOSE 225 mg/dL (74-106); MAGNESIUM - SERUM 1.6 mg/dL (1.8-2.4); PHOSPHOROUS 4.8 mg/dL (2.5-4.9); SODIUM 136 mmol/L (136-145); UREA NITROGEN 24 mg/dL (7-18); eGFR NON AFRICAN AMERICAN 75 mL/min (90-120)
--- NOTE | 2016-06-01 07:30 | NUR ---
RECEIVED PT IN BED EYES CLOSED RESTING QUIETLY RESP UNLABORED NAD NOTED
[2016-06-01 08:00] VITALS: BP 118/64
--- NOTE | 2016-06-01 11:25 | NUR ---
FSBS 296 HUMALOG 10 UNITS GIVEN SQ ABD
[2016-06-01 12:08] VITALS: BP 137/65
[2016-06-01 16:00] VITALS: BP 111/47
--- NOTE | 2016-06-01 17:35 | NUR ---
FSBS 230 HUMALOG 8 UNITS GIVEN SQ ABD
--- NOTE | 2016-06-01 19:15 | NUR ---
INITIAL ROUNDS MADE. PT SITTING UP IN BED WATCHING TV. DENIES NEEDS OR C/O AT THIS TIME. CALL LIGHT IN REACH. WILL CONT TO MONITOR.
[2016-06-01 21:40] VITALS: BP 127/63
[2016-06-02 02:00] VITALS: BP 122/53
--- NOTE | 2016-06-02 03:48 | NUR ---
RESTING WELL WITH EYES CLOSED. CALL LIGHT IN REACH. WILL CONT TO MONITOR.
[2016-06-02 04:23] LABS: BASOPHILS 0.2 % (0.0-2.0); EOSINOPHILS 1.3 % (0-7); HEMATOCRIT 31.2 % (36.0-48.0); HEMOGLOBIN 10.1 g/dL (12-16); IMMATURE GRANULOCYTES 0.4 % (0-5); LYMPHOCYTES 14.8 % (15-50); MCH 27.2 pg (26.0-34.0); MCHC 32.4 g/dL (31.0-37.0); MCV 83.9 fL (80.0-100.0); MEAN PLATELET VOLUME 10.2 fL (7.4-10.4); MONOCYTES 18.6 % (2-11); NEUTROPHILS 64.7 % (40-80); PLATELET COUNT 93 10x3/uL (130-400); RBC 3.72 10x6/uL (4.00-5.40); RDW 15.8 % (11.5-14.5); WBC 4.6 10x3/uL (4.8-10.8)
[2016-06-02 04:54] LABS: ALBUMIN 3.5 g/dL (3.4-5.0); ANION GAP 11.6 mmol/L (8-16); BILIRUBIN - DIRECT 0.16 mg/dL (0.00-0.30); BILIRUBIN - INDIRECT 0.33 mg/dL (0.00-1.00); BILIRUBIN - TOTAL 0.49 mg/dL (0.2-1.3); CALCIUM 9.2 mg/dL (8.5-10.1); POTASSIUM - SERUM 4.6 mmol/L (3.5-5.1); PROTEIN - SERUM 7.4 g/dL (6.4-8.2)
[2016-06-02 04:57] LABS: CREATININE - SERUM 1.1 mg/dL (0.6-1.3)
--- NOTE | 2016-06-02 07:30 | NUR ---
RESTING QUIETLY NAD NOTED
[2016-06-02 07:52] VITALS: BP 124/54
[2016-06-02 08:20] LABS: HEPATITIS C ANTIBODY <0.1 (0.0-0.9)
[2016-06-02 11:42] VITALS: BP 122/51
--- NOTE | 2016-06-02 12:06 | NUR ---
FSBS 254 HUMALOG 10 UNITS GIVEN SQ ABDOMEN
[2016-06-02 15:51] VITALS: BP 96/42
--- NOTE | 2016-06-02 16:50 | NUR ---
FSBS 157 HUMALOG 4 UNITS GIVEN SQ ABD
--- NOTE | 2016-06-02 19:15 | NUR ---
INITIAL ROUNDS MADE. PT SITTING UP IN BED WATCHING TV WITH FAMILY AT BEDSIDE. DISCUSSED PLAN OF CARE AND ANSWERED QUESTIONS. PT DENIES NEEDS OR C/O AT THIS TIME. CALL LIGHT IN REACH. WILL CONT TO MONITOR.
[2016-06-02 20:00] VITALS: BP 112/51
--- NOTE | 2016-06-02 22:30 | NUR ---
REMINDED PT NEED FOR STOOL COLLECTION FOR LAB ORDERED. PT HAS SUPPOSITORY ORDERED, ENCOURAGED PT TO TAKE. PT REFUSES DULCOLAX SUPP.
--- NOTE | 2016-06-02 23:56 | NUR ---
INSTANT POTATO PROCESSING SUPERVISOR AT BEDSIDE FOR VS. NEEDS ADDRESSED AT THIS TIME. CALL LIGHT IN REACH. WILL CONT TO MONITOR.
[2016-06-03] VITALS: BP 111/47
[2016-06-03 04:00] VITALS: BP 100/41
[2016-06-03 06:59] LABS: BASOPHILS 0 % (0.0-2.0); EOSINOPHILS 1.4 % (0-7); HEMATOCRIT 28.1 % (36.0-48.0); HEMOGLOBIN 9.2 g/dL (12-16); IMMATURE GRANULOCYTES 0.5 % (0-5); LYMPHOCYTES 23.3 % (15-50); MCH 27.6 pg (26.0-34.0); MCHC 32.7 g/dL (31.0-37.0); MCV 84.4 fL (80.0-100.0); MEAN PLATELET VOLUME 10.5 fL (7.4-10.4); MONOCYTES 18.5 % (2-11); NEUTROPHILS 56.3 % (40-80); PLATELET COUNT 93 10x3/uL (130-400); RBC 3.33 10x6/uL (4.00-5.40); RDW 15.9 % (11.5-14.5); WBC 4.2 10x3/uL (4.8-10.8)
[2016-06-03 07:18] LABS: ANION GAP 11.7 mmol/L (8-16); CALCIUM 8.7 mg/dL (8.5-10.1); POTASSIUM - SERUM 4.7 mmol/L (3.5-5.1)
[2016-06-03 07:20] LABS: CREATININE - SERUM 2.1 mg/dL (0.6-1.3)
[2016-06-03 07:48] VITALS: BP 113/49
--- NOTE | 2016-06-03 10:07 | NUR ---
PT IS ALERT. ASSESSMENT DONE PER FLOWSHEET. NO OTHER NEEDS AT THIS TIME. WILL CONTINUE TO MONITOR.
[2016-06-03 11:46] VITALS: BP 88/41
--- NOTE | 2016-06-03 14:31 | NUR ---
PT IS ALERT. NO SS OF DISTRESS AT THIS TIME. WILL CONTINUE TO MONTIOR.
[2016-06-03 16:01] VITALS: BP 107/53
[2016-06-03 20:00] VITALS: BP 100/59
--- NOTE | 2016-06-03 22:41 | NUR ---
PT SLEEPING. LAYING ON LEFT SIDE. APPEARS COMFORTABLE. NO DISTRESS NOTED. CALL LIGHT WITH IN REACH. WILL CONT. TO MONITOR.
[2016-06-04] VITALS: BP 117/55
--- NOTE | 2016-06-04 00:34 | NUR ---
PT SLEEPING. APPEARS COMFORTABLE. RESP EVEN AND UNLABORED. NO DISTRESS NOTED. CALL LIGHT WITH IN REACH. WILL CONT. TO MONITOR.
[2016-06-04 04:00] VITALS: BP 114/50
--- NOTE | 2016-06-04 04:22 | NUR ---
PT C/O HER O2 DRYING HER NOSE OUT. SMALL AMT OF BLOOD NOTED ON TISSUE AFTER PT BLOWS NOSE. HUMIDIFIER ATTACHED TO O2. PT A/O. DENIES NEEDS. WILL CONT. TO MONITOR. CALL LIGHT WITH IN REACH.
[2016-06-04 08:17] VITALS: BP 108/47
--- NOTE | 2016-06-04 09:47 | NUR ---
PT IS ALERT. ASSESSMENT DONE PER FLOWSHEET. NO OTHER NEEDS AT THIS TIME. WILL CONTINUE TO MONITOR.
[2016-06-04 11:10] LABS: CARBON DIOXIDE 29.6 mmol/L (21.0-32.0); POTASSIUM - SERUM 4.6 mmol/L (3.5-5.1)
[2016-06-04 11:14] LABS: CREATININE - SERUM 1.5 mg/dL (0.6-1.3)
[2016-06-04 11:50] VITALS: BP 104/49
--- NOTE | 2016-06-04 12:21 | NUR ---
Nutrition follow-up: Diet: ADA consistent CHO PO intake ~100% of most meals at this time Labs reviewwed +BM Wt: 197# RDN following.
--- NOTE | 2016-06-04 12:22 | NUR ---
PT IS ALERT NO SS OF DISTRESS WILL CONTNUE TO MONTIOR.
[2016-06-04] MEDS ORDERED: ALDACTONE25 MG PO (14:04)
[2016-06-04] MEDS ORDERED: VALTREX500 MG PO (14:16)
--- NOTE | 2016-06-04 15:43 | NUR ---
Patient Name: JOE TREVIÑO Admission Status: ER Accout number: [id number] Admission Date: 05-29-2016 : 1950 Admission Diagnosis:SHORTNESS OF BREATH Attending: ALEX Current LOS: 6 Anticipated DC Date: 06-04-2016 Planned Disposition: Home Primary Insurance: [employer] CHOICE PPO MCR ADVANT Discharge Planning Comments: * Is the patient Alert and Oriented? Yes 0 * How many steps to enter\exit or inside your home? 12 0 * PCP DR. GALICIA 0 * Pharmacy [facility] [address] 0 * Preadmission Environment Home with Family 0 * ADLs Independent 0 * Equipment Cane 0 * Other Equipment NO MEDICAL EQUIPMENT PROVIDER PREFERENCE 0 * List name and contact numbers for known caregivers / representatives who currently or will assist patient after discharge: BO SMITH, SPOUSE, 0 * Community resources currently utilized None 0 * Please name any agencies selected above. NONE 0 * Additional services required to return to the preadmission environment? No 0 * Can the patient safely return to the preadmission environment? Yes 0 * Has this patient been hospitalized within the prior 30 days at any hospital? No 0 CM MET WITH PT IN ROOM TO DISCUSS DISCHARGE PLANNING AND NEEDS. PT REPORTS LIVING AT HOME INDEPENDENTLY WITH HER SPOUSE OF 52 YEARS. PT HAS A CANE WITH NO MEDICAL EQUIPMENT PROVIDER PREFERENCE. PT HAS NO OUTSIDE SERVICES ASSISTING IN THE HOME. CM DISCUSSED AVAILABILITY OF HOME HEALTH, REHAB SERVICES AND MEDICAL EQUIPMENT. PT DENIES NEED FOR REHAB AND HOME HEALTH,REPORTS SHE NEEDS A WALKER WITH A SEAT TO ASSIST WITH LONG DISTANCE AMBULATION, REPORTS HER SPOUSE WILL PICK HER UP FOR DISCHARGE HOME. IMPORTANT MESSAGE FROM [employer] PROVIDED AND EXPLAINED. CM RECEIVED ORDER FOR SEATED WALKER, CALLED [facility] WHO IS OUT OF NETWORK FOR INSURANCE. CM CMALLED BIBI GARCIAEK TO [facility] AT [phone] WHO REPORTS IN NETWORK AND CAN DELIVER TO HOSPITAL SHORTLY. CM FAXED REFERRAL TO [facility] AT [phone]. [facility] TO DELIVER WALKER TO PT'S ROOM FOR DISCHARGE HOME TODAY. PT NOTIFIED. NO FURTHER DISCHARGE NEEDS IDENTIFIED. Building Construction Teacher: Misbah Santana
--- NOTE | 2016-06-10 08:42 | EC ---
PATIENT:JOE TREVIÑO DATE OF SERVICE: 05/29/16 SEX: F MEDICAL RECORD: [id number] DATE OF : [birth year] LOCATION:D.M2 D.211 AGE OF PATIENT: 66 ADMISSION DATE: 05/29/16 REFERRING PHYSICIAN: INTERPRETING PHYSICIAN: JOEL YEPEZ MD ECHOCARDIOGRAM REPORT ECHO CHARGES 4 ECHO COMPLETE CLINICAL DIAGNOSIS: ELEVATED BNP, HX CAD/CABG/HTN ECHOCARDIOGRAPHIC MEASUREMENTS (adult normal given) AC root (d.<3.7cm) 3.6 LV Septum d (<1.2 cm> 1.6 Valve Excursion 1.4 LV Septum (systole) 1.9 Left Atria (s.<4.0cm> 4.0 LVPW d(<1.2cm) 1.6 RV (d.<2.3cm) 5.3 LVPW (sytole) 2.0 LV diastole(<5.6CM) 4.8 MV E-F(>70mm/sec) LV systole 2.7 LVOT Diameter 1.8 MV exc.(>10mm) 1.3 Est.ejection fraction (50-75%) Pericardial Effusion N DOPPLER: LVIT A 88.0 E 128 LA RVSP 30 LVOT 104 AOP1/2T Asc. Ao 160 RVOT 138 RA PA 148 AV Gradient Peak 11.07 AV Mean 5.86 AV Area 1.9 MV Gradient Peak 12.41 MV Mean 4.22 MV Area COMMENTS: Interior Design Faculty Member: Rebecca THOMPSON Border Machine Operator:Radha Chauhan TAPE# PACS DATE OF SERVICE: 05/29/2016 Adequate 2D echo, color flow and spectral Doppler, and M-mode. LVH is present. LV internal dimension is normal. Wall motion is normal. EF is greater than or equal to 55%. Aortic valve is tricuspid. No stenosis by Doppler interrogation. The left atrium is upper limits of normal at 4.0 cm. Mitral valve shows no prolapse. Mild MR only. Right-sided chamber is grossly normal. Trace TR. TRANSINT:[id number] Voice Confirmation ID: [id number] DOCUMENT ID: [id number] 06/08/2016 Edited to correct date of service, dmm. ECHOCARDIOGRAM REPORT [id number] CLARAJOE JAIME JOEL YEPEZ MD at 0842 CC: [id number] DICTATION DATE: 05/30/16 1004 KEG VARNISHER: 05/31/16 1400 DIS IN 06/04/16 [address] [facility] [place] [address]
== END 2016-06-04 17:13 | disposition home or self-care (01) | DRG 292 ==
LOC: D.ER 02:28 → D.M2 04:08
PROVIDERS: Emergency Medicine; Family Medicine; Internal Medicine Interventional Cardiology; ADMIT Family Medicine
DX: I11.0 Hypertensive heart disease with heart failure (principal); I69.951 Hemiplegia and hemiparesis following unspecified cerebrovascular disease affecting right dominant side; J98.11 Atelectasis; N39.0 Urinary tract infection, site not specified; I50.21 Acute systolic (congestive) heart failure; I25.10 Atherosclerotic heart disease of native coronary artery without angina pectoris; E78.5 Hyperlipidemia, unspecified; J44.9 Chronic obstructive pulmonary disease, unspecified; E11.65 Type 2 diabetes mellitus with hyperglycemia; K80.20 Calculus of gallbladder without cholecystitis without obstruction; K74.60 Unspecified cirrhosis of liver; R16.1 Splenomegaly, not elsewhere classified; D69.6 Thrombocytopenia, unspecified; R21 Rash and other nonspecific skin eruption; I08.1 Rheumatic disorders of both mitral and tricuspid valves; K76.0 Fatty (change of) liver, not elsewhere classified; B02.9 Zoster without complications; Z79.4 Long term (current) use of insulin; Z95.1 Presence of aortocoronary bypass graft; Z95.5 Presence of coronary angioplasty implant and graft; Z87.891 Personal history of nicotine dependence

== ENCOUNTER 2016-06-08 16:40 | Inpatient (IN) | payer MEDICARE ==
[~2016-06-08] VITALS: Ht 157.5 cm; Wt 87.5 kg
[~2016-06-08 16:40] MED LIST changes: +ALDACTONE25 MG PO; +VALTREX500 MG PO
--- NOTE | 2016-06-08 17:05 | NUR ---
RECEIVED TO ROOM 2207. A/O X3. FAMILY AT BEDSIDE. SKIN IS INTACT WITHOUT REDNESS. IV SITED TO LEFT FOREARM WITH 20 GA AFTER ONE ATTEMPT. NO C/O AT THIS TIME.
[2016-06-08 17:10] VITALS: BP 156/90; BMI 35.4
--- NOTE | 2016-06-08 18:30 | NUR ---
FSBS 256. GIVEN 2 UNITS HUMALOG SUB Q PER SS. GIVEN SANDWICH TRAY FOR SUPPER. NO C CHANGES NOTED. DENIES NEEDS.
[2016-06-08 19:09] LABS: BASOPHILS 0 % (0.0-2.0); EOSINOPHILS 2.1 % (0-7); HEMATOCRIT 20.5 % (36.0-48.0); IMMATURE GRANULOCYTES 0.3 % (0-5); LYMPHOCYTES 34.1 % (15-50); MCH 27.5 pg (26.0-34.0); MCHC 33.2 g/dL (31.0-37.0); MEAN PLATELET VOLUME 10.1 fL (7.4-10.4); MONOCYTES 9.3 % (2-11); NEUTROPHILS 54.2 % (40-80); PLATELET COUNT 89 10x3/uL (130-400); RBC 2.47 10x6/uL (4.00-5.40); RDW 15.9 % (11.5-14.5); WBC 3.3 10x3/uL (4.8-10.8)
[2016-06-08 19:12] LABS: HEMOGLOBIN 6.8 g/dL (12-16)
--- NOTE | 2016-06-08 19:15 | NUR ---
RECIEVED SHIFT REPORT. PT IS LYING IN BED. ALERT AND ORIENTED AND ABLE TO VERBALIZE NEEDS. IV IS PATENT AND SALINE LOC AT THIS TIME. PT IS AMBULATORY WITH ASSISTANCE. PT DENIES ANY PAIN AT THIS TIME. NO NEEDS ARE VERBALIZED AT THIS TIME. WILL CONTINUE TO MONITOR. SIDE RAILS ARE UP X 2. BED IS IN LOWEST POSITION. CALL LIGHT IS WITHIN REACH.
[2016-06-08 19:55] LABS: ALBUMIN 3.3 g/dL (3.4-5.0); ALKALINE PHOSPHATASE 89 U/L (46-116); ALT (SGPT) 38 U/L (10-68); BILIRUBIN - TOTAL 0.28 mg/dL (0.2-1.3); CALC OSMOLALITY 281 mosm/kg (275-300); CALCIUM 8.3 mg/dL (8.5-10.1); CARBON DIOXIDE 29.8 mmol/L (21.0-32.0); CHLORIDE - SERUM 104 mmol/L (98-107); CREATININE - SERUM 0.5 mg/dL (0.6-1.3); GLUCOSE 133 mg/dL (74-106); PRO BNP 376 pg/mL (0-125); PROTEIN - SERUM 6.2 g/dL (6.4-8.2); SODIUM 139 mmol/L (136-145); THYROID STIMULATING HORMONE 3.92 uIU/mL (0.36-3.74); UREA NITROGEN 19 mg/dL (7-18); eGFR NON AFRICAN AMERICAN > 90 mL/min (90-120)
[2016-06-08 20:00] VITALS: BP 124/55
[2016-06-08 20:12] LABS: APTT 28.7 SECONDS (22.8-39.4); INR 1.12 (0.85-1.17); PROTIME 14.3 SECONDS (11.6-15.0)
--- NOTE | 2016-06-08 21:02 | NUR ---
SHIFT ASSESSMENT COMPLETED. NIGHT MEDS GIVEN PER ORDER WITH NO PROBLEMS. PRE-BLOOD MEDICATION GIVEN PER ORDER. PT RECIEVED NO INSULIN PER SLIDING SCALE FOR VHJP=230. NO NEEDS ARE VOICED. WILL MONITOR. SIDE RAILS X 2. BED LOW. CALL LIGHT IN REACH.
--- NOTE | 2016-06-08 21:45 | NUR ---
1ST UNIT PRBC'S STARTED AT THIS TIME. VSS. WILL MONITOR. SIDE RAILS X 2. BED LOW. CALL LIGHT IN REACH.
--- NOTE | 2016-06-08 22:00 | NUR ---
PT W/O REACTION AT THIS TIME. VSS. WILL MONITOR. SIDE RAILS X 2. BED LOW. CALL LIGHT IN REACH.
--- NOTE | 2016-06-09 00:25 | NUR ---
1ST UNIT PRBC'S FINISHED AT THIS TIME AND TUBE FLUSHING. PT REMAINED W/O REACTION. VSS. WILL MONITOR. SIDE RAILS X 2. BED LOW. CALL LIGHT IN REACH.
--- NOTE | 2016-06-09 01:50 | NUR ---
2ND UNIT PRBC'S STARTED. VSS. WILL MONITOR. SIDE RAILS X 2. BED LOW. CALL LIGHT IN REACH.
[2016-06-09 04:00] VITALS: BP 113/56
[2016-06-09 06:34] LABS: BASOPHILS 0 % (0.0-2.0); EOSINOPHILS 1.3 % (0-7); IMMATURE GRANULOCYTES 0.8 % (0-5); LYMPHOCYTES 27.5 % (15-50); MCH 28.4 pg (26.0-34.0); MCHC 33.2 g/dL (31.0-37.0); MEAN PLATELET VOLUME 10.5 fL (7.4-10.4); MONOCYTES 7.5 % (2-11); NEUTROPHILS 62.9 % (40-80); PLATELET COUNT 104 10x3/uL (130-400); RDW 15.7 % (11.5-14.5); WBC 3.9 10x3/uL (4.8-10.8)
[2016-06-09 06:37] LABS: HEMATOCRIT 27.7 % (36.0-48.0); HEMOGLOBIN 9.2 g/dL (12-16); MCV 85.5 fL (80.0-100.0); RBC 3.24 10x6/uL (4.00-5.40)
[2016-06-09 06:57] LABS: ALBUMIN 3.2 g/dL (3.4-5.0); ALKALINE PHOSPHATASE 85 U/L (46-116); ALT (SGPT) 37 U/L (10-68); BILIRUBIN - TOTAL 0.73 mg/dL (0.2-1.3); CALCIUM 8.2 mg/dL (8.5-10.1); CARBON DIOXIDE 28.1 mmol/L (21.0-32.0); CHLORIDE - SERUM 105 mmol/L (98-107); CREATININE - SERUM 0.6 mg/dL (0.6-1.3); POTASSIUM - SERUM 4.3 mmol/L (3.5-5.1); PROTEIN - SERUM 6.2 g/dL (6.4-8.2); SODIUM 141 mmol/L (136-145); UREA NITROGEN 17 mg/dL (7-18); eGFR NON AFRICAN AMERICAN > 90 mL/min (90-120)
[2016-06-09 06:59] LABS: CALC OSMOLALITY 281 mosm/kg (275-300); GLUCOSE 75 mg/dL (74-106)
--- NOTE | 2016-06-09 07:46 | NUR ---
AWAKE AND ALERT. ORIENTED X3. NO C/O PAIN OR WEAKNESS THIS AM. LUNGS ARE CLEAR BILATERALLY, NO COUGH NOTED. SKIN IS INTACT WITHOUT REDNESS EXCEPT A FEW SMALL RED SCABBED SPOTS TO RIGHT BUTTOCK. REPORTED PREVIOUS SHINGLES. SL TO LEFT FOREARM IS PATENT WITHOUT REDNESS AT INSERTION SITE. DENIES NEEDS.
[2016-06-09 08:33] VITALS: BP 137/66
--- NOTE | 2016-06-09 12:00 | NUR ---
FSBS 154. GIVEN 2 UNITS REGULAR INSULIN SUBQ PER SS. LUNCH SERVED IN ROOM.
[2016-06-09 12:50] VITALS: BP 109/49
[2016-06-09 12:51] VITALS: Ht 157.5 cm; Wt 87.5 kg
[2016-06-09 13:32] LABS: PATH REVIEW PERIPHERAL SMEAR REVIEWED
--- NOTE | 2016-06-09 14:21 | NUR ---
Patient Name: JOE TREVIÑO Admission Status: Urgent Accout number: [id number] Admission Date: 06-09-2016 : 1950 Admission Diagnosis: Attending: REAL Current LOS: 1 Anticipated DC Date: 06-12-2016 Planned Disposition: Home Primary Insurance: [employer] CHOICE PPO MCR ADVANT Discharge Planning Comments: CM MET WITH PATIENT REGARDING D/C NEEDS AND PLANS. PATIENT STATED SHE LIVES WITH HER SPOUSE (BO) AND HE WILL DRIVE HER HOME AT DISCHARGE. PATIENT STATED THERE ARE 12 STEPS W/RAILS TO ENTER HOME AND NO STAIRS INSIDE. PATIENT STATED SHE IS INDEPENDENT WITH HER CARE AND HAS A R. WALKER, SHOWER CHAIR, AND GLUCOMETER (CKS 1 X DAILY) AT HOME. PATIENTS PCP IS DR. GALICIA AND PHARMACY IS [facility] [address]. PATIENT HAS A NURSE FROM [facility] [employer] THAT CHECKS ON HER 1X A MONTH. PATIENT DENIES NEED FOR HOME HEALTH AT THIS TIME. CM WILL CONTINUE TO FOLLOW PATIENT WITH D/C NEEDS AND PLANS. PCP DR. FRIDA CORONAD[facility] [address]- [phone] BO (SPOUSE) [phone] ANGELIKA (DAUGHTER) [phone] Licensing Director: Lashawnmurray Estrada Is the patient Alert and Oriented? Yes 0 * How many steps to enter\exit or inside your home? 12 W/RAILS 0 * PCP DR. GALICIA 0 * Pharmacy [facility] [address] 0 * Preadmission Environment Home with Family 0 * ADLs Independent 0 * Equipment Glucometer Rolling Walker Shower Chair 0 * List name and contact numbers for known caregivers / representatives who currently or will assist patient after discharge: BO (SPOUSE) [phone] ANGELIKA [phone] (DAUGHTER) 0 * Community resources currently utilized None 0 * Additional services required to return to the preadmission environment? Yes 0 * Can the patient safely return to the preadmission environment? Yes 0 * Has this patient been hospitalized within the prior 30 days at any hospital? No 0 Grand Total: 0
--- NOTE | 2016-06-09 15:30 | NUR ---
UP TO BR PER SELF. HAD 2 SMALL DROPS OF BRIGHT RED BLOOD IN TIOLET.
[2016-06-09 17:33] VITALS: BP 110/58
--- NOTE | 2016-06-09 18:29 | NUR ---
FSBS 241. GIVEN 4 UNITS REGULAR SUB Q PER SS. ATE ABOUT HALF OF SUPPER. NO CHANGES NOTED. DENIES NEEDS.
--- NOTE | 2016-06-09 19:45 | NUR ---
PATIENT RESTING IN BED AND DENIES NEEDS AT THIS TIME. BED IN LOWEST POSITION AND CALL LIGHT WITHIN REACH. ENCOURAGED PATIENT TO CALL IF SHE HAS NEEDS.
[2016-06-09 22:58] VITALS: BP 112/53
[2016-06-10] VITALS (10 sets, daily range): BP systolic 102–129; BP diastolic 47–66
[2016-06-10 06:38] LABS: ALBUMIN 2.8 g/dL (3.4-5.0); ALKALINE PHOSPHATASE 83 U/L (46-116); ALT (SGPT) 41 U/L (10-68); CALC OSMOLALITY 280 mosm/kg (275-300); CALCIUM 8.3 mg/dL (8.5-10.1); CARBON DIOXIDE 27.2 mmol/L (21.0-32.0); CHLORIDE - SERUM 106 mmol/L (98-107); CREATININE - SERUM 0.6 mg/dL (0.6-1.3); GLUCOSE 72 mg/dL (74-106); POTASSIUM - SERUM 3.8 mmol/L (3.5-5.1); SODIUM 141 mmol/L (136-145); UREA NITROGEN 16 mg/dL (7-18); eGFR NON AFRICAN AMERICAN > 90 mL/min (90-120)
[2016-06-10 06:46] LABS: BASOPHILS 0.2 % (0.0-2.0); EOSINOPHILS 1.6 % (0-7); HEMOGLOBIN 8.8 g/dL (12-16); IMMATURE GRANULOCYTES 0.7 % (0-5); LYMPHOCYTES 25.9 % (15-50); MCH 27.8 pg (26.0-34.0); MCHC 32.6 g/dL (31.0-37.0); MCV 85.2 fL (80.0-100.0); MEAN PLATELET VOLUME 10.4 fL (7.4-10.4); MONOCYTES 8.3 % (2-11); NEUTROPHILS 63.3 % (40-80); RBC 3.17 10x6/uL (4.00-5.40); RDW 15.9 % (11.5-14.5)
[2016-06-10 06:50] LABS: PLATELET COUNT 129 10x3/uL (130-400); WBC 5.6 10x3/uL (4.8-10.8)
--- NOTE | 2016-06-10 07:26 | NUR ---
AWAKE AND ALERT. ORIENTED X3. NO C/O THIS AM. LUNGS ARE CLEAR BILATERALLY,NO COUGH NOTED. SKIN IS INTACT WITHOUT REDNESS. SL TO LEFT FOREARM IS PATENT WITHOUT REDNESS AT INSERTION SITE. DENIES NEEDS. NPO FOR TESTING.
--- NOTE | 2016-06-10 10:00 | NUR ---
RESTING QUIETLY WITH EYES CLOSED. NO NEEDS NOTED.
--- NOTE | 2016-06-10 12:30 | NUR ---
RETURNED WITHOUT PROCEDURE PERFORMED.
--- NOTE | 2016-06-10 13:00 | NUR ---
OFF UNIT VIA BED FOR PROCEDURE. HERE.
--- NOTE | 2016-06-10 13:05 | CN ---
PATIENT NAME:JOE TREVIÑO MEDICAL RECORD: [id number] : [birth year] LOCATION:D.[facility] ADMIT DATE: 06/09/16 ACCOUNT: [id number] CONSULTING PHYSICIAN: XOCHILT MORRELL MD REFERRING PHYSICIAN: SHAMA VALDES MD DATE OF CONSULTATION: 06/09/2016 REFERRING PHYSICIAN: Shama Valdes MD HISTORY OF PRESENT ILLNESS: The patient is a 66-year-old Mosotho female with a history of coronary artery disease, status post PTCA with stent placement and CABG, as well as diabetes, COPD, cerebrovascular disease status post CVA, on aspirin and Plavix, who was basically admitted with progressive anemia/pancytopenia. I saw this lady back in June 2013 for screening colonoscopy, which was completely normal with the exception of one diminutive polyp, which was removed. She denies any GI issues other than chronic constipation and claims she might have seen a "black stool" yesterday. She is on aspirin and Plavix as noted above, is not on any other NSAIDs from what I can tell. She apparently has been seen by Dr. Barriga recently for her anemia and actually had a transfusion last week because of dyspnea and anemia. She also has a new onset of splenomegaly as well as thrombocytopenia and leukopenia. ALLERGIES: GABAPENTIN, LYRICA, AND TETRACYCLINE. PAST MEDICAL HISTORY: As above. PAST SURGICAL HISTORY: Remarkable for her CABG, PTCA with stent placed, tonsillectomy, lipoma removal, hysterectomy, appendectomy, back surgery. HOME MEDICATIONS: Include insulin, Advair, Glucophage/metformin, isosorbide, Plavix, aspirin, lisinopril/HCTZ, metoprolol and Synthroid. FAMILY HISTORY: Negative for GI disease. SOCIAL HISTORY: The patient is a nonsmoker, nondrinker. REVIEW OF SYSTEMS: Noncontributory. PHYSICAL EXAMINATION: GENERAL: Reveals a somewhat obese Mosotho white female in no acute distress. VITAL SIGNS: Stable. She is afebrile. CHEST: Clear. HEART: Regular rate and rhythm. ABDOMEN: Soft, nontender. EXTREMITIES: No edema. LABORATORY DATA: Reveals a hematocrit of 20 on admission, now 27 after transfusion. Her white count is 3.3 thousand, MCV of 83, platelet count 89,000 with a normal differential. Electrolytes are normal. BUN is only 17, creatinine is 0.6. Liver enzymes are normal. Albumin is a little low at 3.2. INR is 1.12. Liver ultrasound reveals fatty liver and cholelithiasis. IMPRESSION: 1. Pancytopenia of unclear etiology, but at this point, I suspect this is not GI related issue and probably more of a bone marrow issue. CONSULT REPORT [id number] JOE TREVIÑO 2. Questionable melena. Her BUN is normal, which does not support the possibility of an upper GI bleed. 3. Normal colonoscopy in June 2013 as noted above, with exception of one diminutive polyp, which was removed. 4. History of coronary artery disease and cerebrovascular disease, on aspirin and Plavix. 5. Diabetes. RECOMMENDATION: 1. EGD tomorrow. 2. Agree with hematology evaluation. I suspect she needs a bone marrow exam. TRANSINT:[id number] Voice Confirmation ID: [id number] DOCUMENT ID: [id number] XOCHILT MORRELL MD at 1305 CC: ERNIE BARRIGA MD and SHAMA VALDES MD [id number] DICTATION DATE: 06/09/161856 BODY SPECIALIST: 06/10/16 0047 ADM IN [facility] [address] [place] [address]
--- NOTE | 2016-06-10 13:59 | NUR ---
FSBS 81. OFF UNIT VIA BED FOR PRPCEDIRE/.
--- NOTE | 2016-06-10 14:01 | NUR ---
RETURNED FROM PROCEDURE. A/O X3. NO C/O AT THIS TIME. VSS. IN ROOM.
--- NOTE | 2016-06-10 15:00 | NUR ---
ATE ALMOST OF CLEAR LIQUID LUNCH TRAY. DENIES NEEDS. UP TO BR WITH MIN ASSIST OF ONE. VOIDED APPROXIMATLY 300cc CLEAR YELLOW URINE.
--- NOTE | 2016-06-10 17:00 | NUR ---
FSBS 168. GIVEN 2 UNITS HUMALOG SUBQ PER SS. SUPPER SERVED IN ROOM. NO CHANGES AT THIS TIME.
--- NOTE | 2016-06-10 18:00 | NUR ---
UP TO BR WITH ONE PERSON SBA. HAD LARGE BM. SKIN CARE PER SELF.
--- NOTE | 2016-06-10 19:43 | NUR ---
REC'D. IN BED TALKING ON PHONE DENIES ANY DISCOMFORT AT PRESENT TIME. REINFORCED NPO AT MIDNIGHT. VOICES UNDERSTANDING
[2016-06-11] VITALS (10 sets, daily range): BP systolic 103–150; BP diastolic 52–67
[2016-06-11 05:36] LABS: BASOPHILS 0 % (0.0-2.0); EOSINOPHILS 1.3 % (0-7); HEMATOCRIT 28.4 % (36.0-48.0); HEMOGLOBIN 9.3 g/dL (12-16); IMMATURE GRANULOCYTES 0.8 % (0-5); LYMPHOCYTES 26.1 % (15-50); MCH 28.2 pg (26.0-34.0); MCHC 32.7 g/dL (31.0-37.0); MCV 86.1 fL (80.0-100.0); MEAN PLATELET VOLUME 9.8 fL (7.4-10.4); MONOCYTES 7.6 % (2-11); NEUTROPHILS 64.2 % (40-80); PLATELET COUNT 134 10x3/uL (130-400); RDW 16.1 % (11.5-14.5); WBC 4.7 10x3/uL (4.8-10.8)
[2016-06-11 05:57] LABS: ALBUMIN 3.1 g/dL (3.4-5.0); ALKALINE PHOSPHATASE 89 U/L (46-116); ALT (SGPT) 44 U/L (10-68); BILIRUBIN - TOTAL 0.54 mg/dL (0.2-1.3); CALCIUM 8.2 mg/dL (8.5-10.1); CARBON DIOXIDE 26.8 mmol/L (21.0-32.0); CHLORIDE - SERUM 108 mmol/L (98-107); CREATININE - SERUM 0.6 mg/dL (0.6-1.3); POTASSIUM - SERUM 4.1 mmol/L (3.5-5.1); PROTEIN - SERUM 6.5 g/dL (6.4-8.2); SODIUM 143 mmol/L (136-145); eGFR NON AFRICAN AMERICAN > 90 mL/min (90-120)
[2016-06-11 05:59] LABS: CALC OSMOLALITY 281 mosm/kg (275-300); GLUCOSE 61 mg/dL (74-106); UREA NITROGEN 11 mg/dL (7-18)
--- NOTE | 2016-06-11 08:05 | NUR ---
AWAKE AND ALERT AT THIS TIME. DR BARRIGA IN ROOM ASSESSING PT. REMAINS NPO FOR PROCEDURE. HIBICLENS BATH PROVIDED BY TIN LINARES. DENIES PAIN OR OTHER NEEDS. CALL LIGHT IN REACH, WILL CONTINUE WITH PLAN OF CARE. RESPIRATIONS EVEN AND NON LABORED.
--- NOTE | 2016-06-11 08:20 | NUR ---
PATIENT NOT IN ROOM AT THIS TIME. TO BONE MARROW BIOPSY, WILL MONITOR PT WHEN SHE RETURNS TO HER ROOM.
--- NOTE | 2016-06-11 08:51 | NUR ---
REPORT RECEIVED FROM CECE VAZQUEZ IN INTERVENTIONAL RADIOLOGY. PT IS ALERT, BUT COMFORTABLE AND WILL RETURN TO ROOM 2207. WILL MONITOR PT WHEN SHE RETURNS TO HER ROOM.
--- NOTE | 2016-06-11 10:48 | NUR ---
SCHEDULED MEDICATIONS ADMINISTERED AT THIS TIME. AWAKE AND ALERT WITH VITAL SIGNS STABLE. CALL LIGHT IN REACH, WILL CONTINUE WITH PLAN OF CARE.
--- NOTE | 2016-06-11 12:53 | NUR ---
Nutrition Follow Up: Chart reviewed. Pt with 85% meal avg. Currently on clear liquid diet. Meds and labs noted. Wt stable. Rec advancing diet as tolerated when medically feasible. RD following.
--- NOTE | 2016-06-11 13:34 | NUR ---
OSMA PREP STARTED AT THIS TIME. PT DENIES PAIN OR FURTHER NEEDS AT THIS TIME. WILL CONTINUE WITH PLAN OF CARE. CALL LIGHT IN REACH, WILL CONTINUE WITH PLAN OF CARE.
--- NOTE | 2016-06-11 16:39 | PRO ---
PATIENT:JOE TREVIÑO MEDICAL RECORD: [id number] : 46 LOCATION:D.MS [facility] ADMISSION DATE: 06/09/16 PROCEDURE PERFORMED BY: XOCHILT KOENIG MD DATE OF PROCEDURE: 06/10/2016 SPACE AND MISSILE OPERATIONS SPACELIFT: Xochilt Koenig MD. PROCEDURE: EGD with biopsy and cauterization of an AVM in the stomach. INDICATION: The patient is a 66-year-old Qatari female with history of coronary artery disease status post stent placement, CABG, cerebrovascular disease status post CVA, diabetes, COPD on Plavix and aspirin, who was admitted with pancytopenia with hematocrit of 20, white count of 3000 and platelet count of 90,000. There has been a questionable melenic stool times 1. She is heme-positive times 1. She had a normal colonoscopy 3 years ago were diminutive polyp, which was removed. She is now for EGD. PREMEDICATION: Taper anesthesia. INSTRUMENT: Olympus video gastroscope. FINDINGS: The endoscope was passed through the oropharynx to the second portion of the duodenum without difficulty. The esophagus was completely normal. The stomach was entered and was remarkable for some scattered focal areas of gastritis with a couple of small erosions as well as 1 moderate sized 8-10 mm AVM in the mid body of the stomach on the greater curve. This was not bleeding, but was a little friable to touch. I cauterized with gold probe using 30 joules with good results. I also took some biopsies from the antrum to rule out H. pylori by means of histology. The duodenum was entered and completely normal. The patient tolerated this procedure well without any immediate complication. IMPRESSION: 1. Single moderate sized AVM that was friable in the mid body of the stomach on the greater curve, possibly a cause for heme-positive stool and possibly anemia as well especially while on aspirin and Plavix. 2. Scattered mild erosive gastritis, probably due to aspirin use. 3. Otherwise, normal esophagogastroduodenoscopy. RECOMMENDATIONS: 1. Protonix 40 mg daily. 2. Follow up gastric biopsy results. 3. Continue GI work with colonoscopy, Wednesday. She apparently had 1 episode of hematochezia of bright red blood seen on her stool earlier today. TRANSINT:[id number] Voice Confirmation ID: [id number] DOCUMENT ID: [id number] PROCEDURE NOTE [id number] JOE TREVIÑO JOHN MD at 1639 CC: ERNIE BARRIGA MD and LC VALDES MD [id number] DICTATION DATE: 06/10/16 1325 ELECTRONIC WARFARE SPECIALIST: 06/11/16 0234 ADM IN [facility] [address] [id number]
[2016-06-12 01:00] VITALS: BP 151/73
[2016-06-12 05:25] LABS: BASOPHILS 0 % (0.0-2.0); HEMATOCRIT 25.7 % (36.0-48.0); HEMOGLOBIN 8.5 g/dL (12-16); IMMATURE GRANULOCYTES 0.8 % (0-5); LYMPHOCYTES 21.8 % (15-50); MCH 28.3 pg (26.0-34.0); MCHC 33.1 g/dL (31.0-37.0); MCV 85.7 fL (80.0-100.0); MEAN PLATELET VOLUME 9.4 fL (7.4-10.4); MONOCYTES 7.8 % (2-11); NEUTROPHILS 68.6 % (40-80); PLATELET COUNT 110 10x3/uL (130-400); RDW 16.2 % (11.5-14.5)
[2016-06-12 05:40] LABS: ALKALINE PHOSPHATASE 101 U/L (46-116); ALT (SGPT) 45 U/L (10-68); BILIRUBIN - TOTAL 0.57 mg/dL (0.2-1.3); CALC OSMOLALITY 286 mosm/kg (275-300); CALCIUM 7.9 mg/dL (8.5-10.1); CARBON DIOXIDE 25.1 mmol/L (21.0-32.0); CHLORIDE - SERUM 109 mmol/L (98-107); CREATININE - SERUM 0.5 mg/dL (0.6-1.3); GLUCOSE 77 mg/dL (74-106); PROTEIN - SERUM 6.3 g/dL (6.4-8.2); SODIUM 145 mmol/L (136-145); UREA NITROGEN 10 mg/dL (7-18); eGFR NON AFRICAN AMERICAN > 90 mL/min (90-120)
[2016-06-12 05:46] LABS: POTASSIUM - SERUM 3.4 mmol/L (3.5-5.1)
[2016-06-12 06:48] VITALS: BP 134/55
--- NOTE | 2016-06-12 07:00 | NUR ---
REPORT RECIEVED ASSUMED CARE. PATIENT IN BED WITH IV INTACT. NO COMPLAINTS AT THIS TIME. CALL LIGHT WITHIN REACH.
[2016-06-12 07:54] VITALS: BP 126/54
[2016-06-12 11:33] VITALS: BP 141/60
--- NOTE | 2016-06-12 12:45 | NUR ---
PATIENT BACK TO ROOM AT THIS TIME. IV INTACT. VS STABLE. NO COMPLAINTS. CALL LIGHT WITHIN REACH.
--- NOTE | 2016-06-12 15:00 | NUR ---
PATIENT TOLERATED REGULAR DIET. IV INTACT. CALL LIGHTW ITHIN REACH.
[2016-06-12 16:32] VITALS: BP 154/52
--- NOTE | 2016-06-12 18:55 | NUR ---
PATIENT SITTING UP IN BED WITH NO COMPLAINTS OR SIGNS OF DISTRESS. FAMILY AT BEDSIDE. IV INTACT. CALL LIGHT WITHIN REACH.
[2016-06-12 19:00] VITALS: BP 127/55
--- NOTE | 2016-06-12 20:00 | NUR ---
PT RECEIVED SITTING UP IN ROOM WATCHING TELEVISION. PT ALERT AND ORIENTED X4. RESPIRATIONS EVEN AND UNLABORED. LUNG SOUNDS CLEAR BILATERALLY. TELEMETRY IN PLACE AT THIS TIME. PT NOTED TO HAVE IV TO LEFT FOREARM, SALINE LOCKED AT THIS TIME. PLEASANT MOOD NOTED. DENIES PAIN OR NEEDS AT THIS TIME. CALL LIGHT AND H2O IN PT REACH. BED IN LOW POSITION. SIDE RAILS UP X2.
--- NOTE | 2016-06-13 02:00 | NUR ---
PT IN BED WITH NO DISTRESS. RESPIRATIONS EVEN AND UNLABORED. SIDE RAILS X 2. BED LOW. CALL LIGHT IN REACH.
[2016-06-13 05:41] LABS: BASOPHILS 0.3 % (0.0-2.0); EOSINOPHILS 0.8 % (0-7); HEMATOCRIT 25.6 % (36.0-48.0); HEMOGLOBIN 8.5 g/dL (12-16); IMMATURE GRANULOCYTES 0.3 % (0-5); LYMPHOCYTES 26.9 % (15-50); MCH 28.7 pg (26.0-34.0); MCHC 33.2 g/dL (31.0-37.0); MCV 86.5 fL (80.0-100.0); MEAN PLATELET VOLUME 10.1 fL (7.4-10.4); NEUTROPHILS 61.7 % (40-80); PLATELET COUNT 114 10x3/uL (130-400); RBC 2.96 10x6/uL (4.00-5.40); RDW 16.3 % (11.5-14.5); WBC 3.9 10x3/uL (4.8-10.8)
[2016-06-13 06:02] LABS: ALBUMIN 2.8 g/dL (3.4-5.0); ALKALINE PHOSPHATASE 112 U/L (46-116); ALT (SGPT) 42 U/L (10-68); CALCIUM 8.6 mg/dL (8.5-10.1); CARBON DIOXIDE 28.3 mmol/L (21.0-32.0); CHLORIDE - SERUM 103 mmol/L (98-107); POTASSIUM - SERUM 3.8 mmol/L (3.5-5.1); PROTEIN - SERUM 6.1 g/dL (6.4-8.2); SODIUM 138 mmol/L (136-145); eGFR NON AFRICAN AMERICAN 88 mL/min (90-120)
[2016-06-13 06:03] LABS: CALC OSMOLALITY 278 mosm/kg (275-300); CREATININE - SERUM 0.7 mg/dL (0.6-1.3); GLUCOSE 157 mg/dL (74-106); UREA NITROGEN 13 mg/dL (7-18)
--- NOTE | 2016-06-13 07:20 | NUR ---
PATIENT RECEIVED IN LOW BOTELLO POSITION RESTING QUIETLY. RESPIRATIONS EVEN AND UNLABORED. DENIES NEEDS. SIDE RAILS UP X2. BED IN LOW POSITION. CALL LIGHT IN REACH.
--- NOTE | 2016-06-13 08:22 | NUR ---
PATIENT SITTING UP IN BED ALERT. NO SIGNS OF DISTRESS NOTED. SCHEDULED MEDICATION ADMINISTERED. SIDE RAILS UP X2. BED IN LOW POSITION. CALL LIGHT IN REACH.
[2016-06-13 08:40] VITALS: BP 114/50
--- NOTE | 2016-06-13 10:13 | PRO ---
PATIENT:JOE TREVIÑO MEDICAL RECORD: [id number] : 46 LOCATION:D.MS [facility] ADMISSION DATE: 06/09/16 PROCEDURE PERFORMED BY: XOCHILT KOENIG MD DATE OF PROCEDURE: 06/12/2016 RECEIVING CHECKER: Xochilt Koenig MD. PROCEDURES: Colonoscopy with ileoscopy. INDICATION: The patient is a 66-year-old Tajik female, who was admitted with pancytopenia and a heme-positive stool. She describes occasional black stools and occasional hematochezia. She had an EGD a couple of days ago, which revealed a gastric AVM that was not bleeding, but was cauterized. Of note, she was on aspirin and Plavix on admission. She is now for colonoscopy. Of note, she had a normal colonoscopy about 3 years ago. PREMEDICATION: Taper anesthesia. INSTRUMENT: Olympus video adjustable colonoscope. FINDINGS: Rectal exam was normal. The colonoscope was passed through the rectum and to the terminal ileum without much difficulty, although there is looping in the colon. Prep was good. Exam was completely normal with the exception of small internal hemorrhoids on retroflexion in the rectum. There was no evidence of any mass, lesions or polypoid lesion, diverticular disease or AVMs seen. I never saw a drop of blood during the whole exam. The patient tolerated the procedure well without complication. IMPRESSION: 1. Small internal hemorrhoids. 2. Otherwise normal colonoscopy and ileoscopy. 3. Heme-positive stool, probably secondary to either her internal hemorrhoids or her gastric arteriovenous malformation while on aspirin and Plavix. RECOMMENDATIONS: 1. Screening colonoscopy in 10 years. 2. Anusol-HC suppositories p.r.n. hemorrhoid bleeding. 3. Obviously avoid constipation and straining with bowel movement. 4. Could consider hemorrhoidal banding in the future if needed for her small hemorrhoids. TRANSINT:[id number] Voice Confirmation ID: [id number] DOCUMENT ID: [id number] XOCHILT KOENIG MD at 1013 CC: ERNIE BARRIGA MD and LC VALDES MD [id number] DICTATION DATE: 06/12/16 1318 WHARF ATTENDANT: 06/12/16 2220 ADM IN [place] [id number] [place] [address]
--- NOTE | 2016-06-13 11:03 | NUR ---
ACCU CHECK 182. INSULIN PER SLIDING SCALE. DENIES NEEDS. SIDE RAILS UP X2. BED IN LOW POSITION. CALL LIGHT IN REACH.
[2016-06-13 12:34] VITALS: BP 109/58
--- NOTE | 2016-06-13 14:20 | NUR ---
IV TO LEFT FOREARM D/C WITH CATH TIP INTACT. SITE COVERED WITH GAUZE AND BANDAID. WELL TOLERATED.
[2016-06-13 16:34] VITALS: BP 138/60
--- NOTE | 2016-06-13 16:39 | NUR ---
ACCU CHECK 197. INSULIN PER SLIDING SCALE. NO FURTHER NEEDS. SIDE RAILS UP X2. BED IN LOW POSITION. CALL LIGHT IN REACH.
--- NOTE | 2016-06-13 18:25 | NUR ---
D/C TEACHING PROVIDED. STATES UNDERSTANDING. WAITING ON TO ARRIVE
--- NOTE | 2016-06-13 18:50 | NUR ---
PATIENT D/C HOME WITH . TRANSFERRED DOWNSTAIRS VIA WHEELCHAIR
--- NOTE | 2016-07-09 15:50 | DS ---
PATIENT:JOE TREVIÑO :46 MEDICAL RECORD: [id number] DISCHARGE SUMMARY ADMISSION DATE: 06/09/16 DISCHARGE DATE: 06/13/16 DATE OF ADMISSION: 06/09/2016 DATE OF DISCHARGE: 06/13/2016 ADMITTING DIAGNOSES: Anemia, thrombocytopenia, arteriovenous malformation, erosive gastritis, gastrointestinal bleed, coronary artery disease, hypertension, chronic obstructive pulmonary disease, diabetes mellitus, carotid artery disease and hyperlipidemia. HOSPITAL COURSE: This is a lady admitted with diagnoses as outlined above. Details are well-outlined in the history of present illness, H&P. All events, lab procedures, diagnostic testing are well documented in the records. CONSULTANTS: Dr. Daly, hematology/oncology, Dr. Chang, cardiology, Dr. Koenig. Plavix put on hold. Labs and volume closely followed. Occult blood found to be positive had an EGD by the 3rd leasing consultant Dr. Koenig. EGD and colonoscopy done showing a gastric AVM now cauterized small internal hemorrhoids. She was felt to have developed myelodysplasia. She is to avoid aspirin, bone marrow biopsy done during the stay with biopsy results pending at the time of discharge, she was found stable for dismissal home on 06/13/2016, afebrile, vital signs stable. LABORATORY DATA: White count 3.9, hemoglobin 8.5, platelets were 114, sodium 138, potassium 3.4, chloride 103, CO2 of 28, BUN 13, serum creatinine 0.7, glucose 157, T-bili 0.5, AST 25, ALT 42, alkaline phosphatase 112. Serum total protein 6.1, albumin 2.8, globulin 3.3. TSH checked during the stay at 3.92. She is stable for dismissal home. DIAGNOSES: Anemia, thrombocytopenia, arteriovenous malformation, erosive gastritis, gastrointestinal bleed, coronary artery disease, hypertension, chronic obstructive pulmonary disease, diabetes mellitus, carotid artery disease and hyperlipidemia.. They also include probably myelodysplasia, status post arteriovenous malformation and some internal hemorrhoids. Greater than 30 minutes was spent on this discharge. TRANSINT:[id number] Voice Confirmation ID: [id number] DOCUMENT ID: [id number] Dictated By: JOSÉ LUIS MARTINEZ RN I have interviewed/examined the above patient and agree with these documented findings. DISCHARGE SUMMARY REPORT [id number] CIOARA,LC MEDINA MD at 1553 at 1550 CC: [id number] DICTATION DATE: 07/07/16 164 CUSTOMS AND BORDER PROTECTION INSPECTOR: 07/08/16 1056 DIS IN 06/13/16 [facility] [address] [id number]
== END 2016-06-13 18:52 | disposition home or self-care (01) | DRG 808 ==
LOC: D.MS 16:40 → OBSVTIME 16:40 → D.MS 16:40
PROVIDERS: Internal Medicine Hematology & Oncology; Specialist; ADMIT Family Medicine
PROC: 0W3P8ZZ Control Bleeding in Gastrointestinal Tract, Via Natural or Artificial Opening Endoscopic (ICD-10-PCS; 2016-06-11)
PROC: 0DB68ZX Excision of Stomach, Via Natural or Artificial Opening Endoscopic, Diagnostic (ICD-10-PCS; principal; 2016-06-11 08:00)
DX: D61.818 Other pancytopenia (principal); K55.21 Angiodysplasia of colon with hemorrhage; I25.10 Atherosclerotic heart disease of native coronary artery without angina pectoris; K29.70 Gastritis, unspecified, without bleeding; E11.9 Type 2 diabetes mellitus without complications; Z79.4 Long term (current) use of insulin; J44.9 Chronic obstructive pulmonary disease, unspecified; Z95.1 Presence of aortocoronary bypass graft; K64.8 Other hemorrhoids; I11.0 Hypertensive heart disease with heart failure; I50.9 Heart failure, unspecified

== ENCOUNTER 2017-05-05 04:03 | Outpatient (CLI) | payer MEDICARE ==
--- NOTE | ~2017-05-05 | CN ---
PATIENT NAME:JOE PALACIOS MEDICAL RECORD: [id number] : 46 LOCATION:[facility] ADMIT DATE: ACCOUNT: [id number] CONSULTING PHYSICIAN: CARLITA MENSAH MD REFERRING PHYSICIAN: FREDDIE CABRERA MD DATE OF CONSULTATION: 05/05/2017 DIAGNOSES: 1. Unstable angina. 2. Coronary artery disease. 3. Previous multivessel percutaneous transluminal coronary angioplasty stent. 4. Hypertension. 5. Hyperlipidemia. 6. Noninsulin-dependent diabetes. HISTORY OF PRESENT ILLNESS: Mrs. Palacios presents with increasing anginal symptomatology just like that of her previous angina rapidly progressive unstable fashion. REVIEW OF SYSTEMS: The patient reports easy bruising but reports no swollen glands. The patient reports no fever, no night sweats, no significant weight gain, no significant weight loss. No significant exercise tolerance. The patient reports no dry eyes, no irritation, no vision change. Patient reports no difficulty hearing and no ear pain. Patient reports no frequent nose bleeds or nose and sinus problems. Patient reports on arm pain on exertion. No shortness of breath while lying down. No history of heart murmur. Patient reports no cough, no wheezing or coughing up blood. Patient reports no abdominal pain, no vomiting. Normal appetite. No diarrhea and not vomiting blood. No nausea and no constipation. Patient reports no incontinence. No difficulty urinating. No hematuria. No increased frequency. Patient reports no muscle aches. No weakness, no arthralgias, no back pain. No swelling of the extremities. Patient reports no abnormal mole, no jaundice, no rashes. Reports no loss of consciousness. No weakness and no numbness. No seizures, dizziness, or headaches. The patient reports no depression, no sleep disturbance, feeling safe in a relationship and no alcohol abuse. Patient reports on fatigue. Reports no runny nose or sinus pressure. No itching, no hives, and no frequent sneezing. PHYSICAL EXAMINATION: GENERAL APPEARANCE: Well-nourished, well-developed, appears stated age. Level of distress, comfortable. PSYCHIATRIC: Mental status, alert, normal affect. Orientation, oriented to time, place and person. EYES: Lids and conjunctiva, noninjected. No discharge, no pallor. ENT: Lips, teeth, gums, normal dentition. Oropharynx, no cyanosis, no pallor. NECK: Carotid arteries, bilateral normal upstroke, no bruits, no thrills. JUGULAR VEINS: No jugular venous pressure or distention. CERVICAL LYMPH NODES: Nontender, nonenlarged. THYROID: Not enlarged. Nontender. No nodules. LUNGS: Respiratory effort, unlabored. CHEST: Normal curvature. No thoracic deformity. No chest wall tenderness. Percussion, resonant. Auscultation, clear. No wheezes, no rales, no rhonchi. CARDIOVASCULAR: Precordial exam, nondisplaced. No heaves or pericardial thrills. Rate and rhythm, regular. Heart sounds, normal S1, normal S2. No S3, no gallop, no rub. Systolic murmur, not heard. Diastolic murmur, not heard. CONSULT REPORT [id number] MANOHAR PALACIOSVICTORIAEmilia EXTREMITIES: No cyanosis, no edema. Peripheral pulses, full and equal in all extremities, except as noted. No bruits appreciated. ABDOMEN: Soft, nondistended. Normal aorta. No bruit. Nontender. No masses. Liver, nontender, no hepatomegaly. Spleen, nontender, no splenomegaly. MUSCULOSKELETAL: No joint tenderness. No joint swelling. No erythema. NEUROLOGICAL: Normal gait, normal strength, normal tone. SKIN: Warm and dry. OVERALL IMPRESSION: Unstable angina, most likely she has hemodynamically significant coronary artery disease. We will proceed with coronary angiography. Further care depends upon the findings of the angiography. TRANSINT:[id number] Voice Confirmation ID: [id number] DOCUMENT ID: [id number] CARLITA MENSAH MD at 1148 CC: [id number] DICTATION DATE: 05/05/17 0849 RESEARCH DEVELOPMENT DIRECTOR: 05/05/17 0941 DEP CLI 05/05/17 [id number] [place] [address]
--- NOTE | ~2017-05-05 | OP ---
PATIENT NAME: JOE TREVIÑO MEDICAL RECORD: [id number] :46 LOCATION:D.CAT ADMISSION DATE: SURGEON: CARLITA MENSAH MD DATE OF OPERATION: 05/05/2017 PROCEDURES: 1. PTCA stent left main. 2. Left heart catheterization. 3. Selective coronary angiography. 4. Vein graft angiography. 5. TAY angiography. 6. Left ventriculogram. INDICATION: Unstable angina. PROCEDURE IN DETAIL: After informed consent was obtained and after detailed explanation of risks, benefits as well as alternative therapies, the patient elected to proceed with angiogram and angioplasty. The right femoral area was prepped and draped in normal sterile fashion. Right femoral artery was cannulated via modified Seldinger technique with placement of 6-Romanian sheath. All catheters exchanged through this sheath. FINDINGS: Left ventriculogram was performed in standard 30-degree RODRIGEZ view, reveals good cardiac wall motion throughout all segments. Overall ejection fraction estimated 60%. SELECTIVE CORONARY ANGIOGRAPHY: 1. Left main has 75% stenosis. This leads into a non-grafted LAD diagonal system. After this, the left anterior descending is totally occluded. 2. TAY to the LAD is widely patent. The distal LAD is widely patent, but this is not back filled a relatively large diagonal system. 3. The left circumflex is totally occluded. 4. Vein graft to the circumflex is widely patent. Distal circumflex is small and diffusely diseased, but patent. 5. The right coronary is totally occluded. 6. Vein graft to the right coronary is widely patent. The distal right coronary is patent, diffusely diseased and small. PTCA STENT OF THE LEFT MAIN: The stent used is a 4.0 x 15 mm [place] taken to 23 atmospheres. Result was 0% residual stenosis. OVERALL IMPRESSION: Successful percutaneous transluminal coronary angioplasty stent of the left main, leading to a non-grafted diagonal system going from 75% initial stenosis to 0% residual. TRANSINT:[id number] Voice Confirmation ID: [id number] DOCUMENT ID: [id number] OPERATIVE REPORT [id number] YARELYJEO Nieto CARLITA MENSAH MD at 1148 CC: [id number] DICTATION DATE: 05/05/17 09 LEAD AUDITOR: 05/05/17 1017 DEP CLI 05/05/17 [facility] [address] [place] [address]
--- NOTE | ~2017-05-05 | HEMODYNAMI ---
PATIENT:JOE TREVIÑO MEDICAL RECORD: [id number] : 46 [id number] ADMISSION DATE: 05/05/17 Generatedon:05/05/20179:09 Patient name: JOE TREVIÑO Patient #: [id number] SSN : : 1950 Date of study: 05/05/2017 Page: Of Hemodynamic Procedure Report Patient Data Patient Demographics Procedure consent was obtained First Name: JOE Gender: Female Last Name: KAMILA : 1950 Patient #: [id number] Age: 67 year(s) Race: Additional ID: [id number] Contact details [address]: [address] [place] [address] [id number] State: [place] City: [place] Zip code: [address] Past Medical History Allergies Allergen Reaction Date Comments Reported Other 04/18/2014 tetracycline, statins allergy Other 04/06/2016 statin,tetracycline,lyalla, allergy Other 05/05/2017 statins, allergy Admission Admission Data Admission Date: 05/05/2017 Admission Time: 4:03 Procedure Procedure Types Cath Procedure Diagnostic Procedure LHC LHC w/Coronaries w/Grafts PCI Procedure Coronary Stent Miscellaneous Procedures Moderate Sedation up to 15 minutes Procedure Description Procedure Date Procedure Date: 05/05/2017 Procedure Start Time: 8:54 Procedure End Time: 9:08 Procedure Staff Name Function Óscar Chang MD Performing Physician Roselyn Germain RT Scrub Maggie Rae RN Nurse Amber Nix RT Monitor Indication Angina Procedure Data Cath Procedure Fluoroscopy Diagnostic fluoroscopy Total fluoroscopy Time: 3.8 time: 3.8 min min Diagnostic fluoroscopy Total fluoroscopy dose: 875 dose: 875 mGy mGy Contrast Material Contrast Material Type Amount (ml) Isovue 300 106 Entry Location Entry Primary Successful Side Size Upsize Upsize Entry Closure Succes sful Closure Location (Fr) 1 (Fr) 2 (Fr) Remarks Device Remarks Femoral Right 5 Fr 6 Fr Exoseal artery Short Estimated blood loss: 10 ml Diagnostic catheters Device Type Used For End Catheter Placement MULTIPACK Pigtail 5 Fr Ventriculography catheter MULTIPACK JL 4.0 5Fr Procedure catheter MULTIPACK 3DRC 5Fr Procedure catheter DIAGNOSTIC AR 2 MOD 5 Fr Procedure catheter ([id number]) Procedure Complications No complications Procedure Medications Medication Administration Route Dosage 0.9% NaCl I.V. 100 ml/hr Oxygen NC 2 l/min Lidocaine 2% added to field 20 Heparin Flush Bag added to field 2 bags (1000units/500ml NS) Benadryl I.V. 50 mg Fentanyl I.V. 50 mcg Versed I.V. 1 mg Fentanyl I.V. 25 mcg Versed I.V. 0.5 mg Fentanyl I.V. 25 mcg Heparin Bolus I.V. 4000 units Versed I.V. 0.5 mg Plavix P.O. 75 mg Hemodynamics Rest Heart Rate: 74 (bpm) Snapshots Pre Cath Intra NCS Post Cath Vital Signs Time Heart Resp SPO2 etCO2 NIBP (mmHg) Rhythm Pain Sedation Rate (ipm) (%) (mmHg) Status Level (bpm) 8:37:43 79 16 99 45.2 172/79(146) NSR 0 (11) 10(A) , No pain 8:42:07 73 17 99 38.4 159/76(121) NSR 0 (11) 10(A) , No pain 8:46:35 78 14 98 19.6 167/75(117) NSR 0 (11) 10(A) , No pain 8:50:53 78 19 98 24.1 148/69(123) NSR 0 (11) 9(A) , No pain 8:55:15 78 19 99 51.3 139/64(109) NSR 0 (11) 9(A) , No pain 8:59:31 80 18 99 54.3 126/56(78) NSR 0 (11) 9(A) , No pain 9:03:45 80 18 99 52.1 119/54(75) NSR 0 (11) 10(A) , No pain 9:07:57 80 19 98 51.3 113/55(86) NSR 0 (11) 10(A) , No pain Medications Time Medication Route Dose Verified Delivered Reason Note s Effectiveness by by 8:25:39 0.9% NaCl I.V. 100ml/hr Óscar Serrano used for Charlene Rae RN procedure 8:25:46 Oxygen NC 2 l/min Óscar Serrano Per physician Charlene Rae RN 8:25:52 Lidocaine 2% added 20ml Óscar Óscar for local to vial Charlene Chang MD anesthetic field 8:26:00 Heparin Flush added 2 bags Óscar Óscar used for Bag to Charlene Chang MD procedure (1000units/500ml field NS) 8:45:22 Benadryl I.V. 50 mg Óscar Serrano Per protocol Charlene Rae RN 8:49:52 Fentanyl I.V. 50 mcg Óscar Serrano for sedation Charlene Rae RN 8:50:01 Versed I.V. 1 mg Óscar Serrano for sedation Charlene Rae RN 8:53:26 Fentanyl I.V. 25 mcg Óscar Ferrerafany for sedation Charlene Rae RN 8:55:02 Versed I.V. 0.5 mg Óscar Ferrerafany for sedation Charlene Rae RN 8:55:10 Fentanyl I.V. 25 mcg Óscar Ferrerafany for sedation Charlene Rae RN 9:01:31 Heparin Bolus I.V. 4000 Óscar Ferrerafany for veri fied units Charlene Rae RN anticoagulation by 9:02:52 Versed I.V. 0.5 mg Óscar Ferrerafany for sedation Charlene Rae RN 9:08:48 Plavix P.O. 75 mg Óscar Serrano for Charlene Rae RN antiplatelet therapy Procedure Log Time Note 8:11:49 Diagnostic Cath Status : Elective 8:12:18 Indication : Angina 8:12:41 Roselyn Germain RT(R) sent for patient. Start room use. 8:12:42 Time tracking: Regular hours 8:12:46 Plan of Care:Hemodynamics will remain stable., Cardiac rhythm will remain stable., Comfort level will be maintained., Respiratory function will remain adequate., Patient/ family verbilizes understanding of procedure., Procedure tolerated without complication., Recovers from procedure without complications.. 8:25:39 0.9% NaCl 100ml/hr I.V. was administered by Maggie Rae RN; used for procedure; 8:25:46 Oxygen 2 l/min NC was administered by Maggie Rae RN; Per physician; 8:25:52 Lidocaine 2% 20ml vial added to field was administered by Óscar Chang MD; for local anesthetic; 8:26:00 Heparin Flush Bag (1000units/500ml NS) 2 bags added to field was administered by Óscar Chang MD; used for procedure; 8:36:20 Vital chart was started 8:40:45 Patient received from ED to CCL 2 Alert and oriented. Tansferred to table in Supine position. 8:40:46 Warm blankets applied, and estevan hugger turned on for patient comfort. 8:40:47 Correct patient and procedure confirmed by team. 8:40:48 Signed procedure consent form obtained from patient. 8:40:49 ECG and BP/O2 sat monitors applied to patient. 8:40:51 Baseline sample Acquired. 8:45:04 Rhythm: sinus rhythm 8:45:06 Full Disclosure recording started 8:45:22 Benadryl 50 mg I.V. was administered by Maggie Rae RN; Per protocol; 8:45:30 H&P Date Dictated: 05/05/2017 Emergent; H&P N/A. 8:45:32 Pre-procedure instructions explained to patient. 8:45:40 Family in waiting room. 8:45:54 Patient NPO since Midnight. 8:47:51 Patient allergic to Other allergystatins, 8:47:53 Is the patient allergic to Iodine/contrast media? No. 8:48:00 Was the patient premedicated? No 8:48:04 Is patient on blood thinner?Yes 8:48:07 ACC The patient was administered the following blood thiners within the last 24 hours: ACCPlavix 8:48:10 Patient diabetic? Yes. 8:48:12 If diabetic: On Metformin? Yes 8:48:15 If on Metformin: Last Dose? 05/04/2017 8:48:20 HCG/Urine : completed and on chart 8:48:26 Snore? Yes 8:48:28 Sleep apnea? No 8:48:34 Airway obstruction? Yes COPD 8:48:40 Dentures? No ? 8:48:50 Patient pain scale 0/10 ?. 8:48:58 IV patent on arrival in right forearm with 0.9% NaCl at O. 8:49:03 Lab results completed and on chart. 8:49:10 Right groin area was prepped with chlora-prep and draped in sterile fashion 8:49:13 Alarms reviewed by Sam N. 8:49:14 Sharps counted by scrub and verified by R.N. 8:49:14 Physician paged 8:49:15 Physician arrived 8:49:16 --------ALL STOP TIME OUT------ 8:49:16 Final Timeout: patient, procedure, and site verified with staff and physician. All members of the team are in agreement. 8:49:18 Right groin site verified by team. 8:49:21 Physical assessment completed. ASA score P 2 - A patient with mild systemic disease as per Óscar Chang MD. 8:49:35 Sedation plan: IV Moderate Sedation Medication:Versed, Fentanyl 8:49:40 Use device set Femoral Dx 8:49:43 ACIST Syringe (97044) opened to sterile field. 8:49:43 Bag Decanter (2002S) opened to sterile field. 8:49:43 Medline Cath Pack ([id number]) opened to sterile field. 8:49:44 SHEATH 5FR [place] (NIZ579) opened to sterile field. 8:49:44 DIAGNOSTIC WIRE .035 260cm J wire (238697) opened to sterile field. 8:49:46 ACIST Hand Control (82679) opened to sterile field. 8:49:46 ACIST Manifold (60044) opened to sterile field. 8:49:46 DIAGNOSTIC Multipack 5Fr catheter set (MP9805) opened to sterile field. 8:49:47 Tegaderm 4 x 4 (1626W) opened to sterile field. 8:49:48 PERCUTANEOUS ENTRY 19GA needle opened to sterile field. 8:49:52 Fentanyl 50 mcg I.V. was administered by Maggie Rae RN; for sedation; 8:50:01 Versed 1 mg I.V. was administered by Maggie Rae RN; for sedation; 8:53:26 Fentanyl 25 mcg I.V. was administered by Maggie Rae RN; for sedation; 8:53:58 Procedure started. 8:54:08 Local anesthetic to right femoral artery with Lidocaine 2% by Óscar Chang MD.INITIAL ACCESS ONLY 8:54:28 A 5 Fr sheath was inserted into the Right Femoral artery 8:54:32 Zero performed for pressure channel P1 8:55:02 Versed 0.5 mg I.V. was administered by Maggie Rae RN; for sedation; 8:55:10 Fentanyl 25 mcg I.V. was administered by Maggie Rae RN; for sedation; 8:56:26 A MULTIPACK Pigtail 5 Fr catheter was advanced over the wire and used for Ventriculography. 8:56:33 EF : 60 % 8:56:35 Catheter removed. 8:56:41 A MULTIPACK JL 4.0 5Fr catheter was advanced over the wire and used for Procedure. 8:57:28 Catheter removed. 8:57:38 A MULTIPACK 3DRC 5Fr catheter was advanced over the wire and used for Procedure. 8:57:52 TAY to LAD angiography performed. 8:58:42 RCA angiography performed. 8:59:23 Catheter removed. 8:59:28 A DIAGNOSTIC AR 2 MOD 5 Fr catheter ([id number]) was advanced over the wire and used for Procedure. 8:59:39 SHEATH 6FR [place] (VIW664) opened to sterile field. 8:59:40 INFLATOR Merit BasixCompak (DF5061) opened to sterile field. 9:00:32 SVG to Circ angiography performed. 9:00:42 SVG to RCA angiography performed. 9:01:06 CHOICE PT Extra Support 182cm wire ([id number]) opened to sterile field. 9:01:14 Proceeding to intervention. 9:01:25 Sheath upsized to a 6 Fr Short. 9:01:31 Heparin Bolus 4000 units I.V. was administered by Maggie Rae RN; for anticoagulation; verified by 9:01:40 6 Fr xb 3.5 guide catheter was inserted over the wire 9:02:28 Choice ex support wire advanced. 9:02:52 Versed 0.5 mg I.V. was administered by Maggie Rae RN; for sedation; 9:04:21 Inflation Number: 1 A CAL RX 4.0 x 15 stent ([id number]) was prepped and advanced across the LMCA. The stent was deployed at 19 SERA for 0:10 (min:sec). 9:04:49 Inflation number: 2 The stent balloon was then re-inflated across the LMCA to 21 SERA for 0:09 (min:sec). 9:05:44 EXOSEAL 6Fr (EX600) opened to sterile field. 9:05:53 Wire removed. 9:05:57 Guide catheter removed. 9:06:06 Sheath removed intact; hemostasis achieved with Exoseal to the Right Femoral artery. 9:06:09 Procedure ended.(Physican Out) 9:06:22 Fluoroscopy time 03.80 minutes. 9:07:20 Flurop Dose total: 875 9:07:20 Fluoroscopy dose: 875 mGy 9:07:26 Contrast amount:Isovue 300 106ml. 9:07:39 Sharps counted by scrub and verified by R.N. 9:07:41 Insertion/operative site no bleeding no hematoma. 9:07:47 Post Procedure Pulses reassessed and unchanged 9:07:53 Post-procedure physical assessment completed. ASA score P 2 - A patient with mild systemic disease as per Óscar Chang MD. 9:07:56 Post procedure rhythm: unchanged. 9:08:00 Estimated blood loss: 10 ml 9:08:02 Post procedure instruction explained to patient.Patient verbalizes understanding. 9:08:22 Procedure type changed to Cath procedure, Diagnostic procedure, LHC, LHC w/Coronaries w/Grafts, PCI procedure, Coronary Stent, Miscellaneous Procedures, Moderate Sedation up to 15 minutes 9:08:23 Procedure and supply charges have been captured, reviewed, submitted and are correct. 9:08:43 Procedure Complication : No complications 9:08:46 Vital chart was stopped 9:08:47 See physician's report for complete and final results. 9:08:48 Plavix 75 mg P.O. was administered by Maggie Rae RN; for antiplatelet therapy; 9:08:49 Report given to Pre/Post Procedure Room. 9:08:53 Patient transfered to Pre/Post Procedure Room with Stretcher. 9:08:55 Procedure ended. 9:08:55 Full Disclosure recording stopped 9:08:58 End room use (Document Last) Intervention Summary Intervention Notes Time ActionType Lesion and Equipment Used Action# Pressure Duration Attributes 9:04:21 Place stent LMCA CAL RX 4.0 x 1 19 00:10 15 stent ([id number]) 9:04:49 Reinflate LMCA CAL RX 4.0 x 2 21 00:09 stent 15 stent balloon ([id number]) Device Usage Item Name Manufacture Quantity Catalog Number Hospital Part Current M inimal Lot# / Charge Number Stock Stock Serial# Code ACIST Syringe Acist 1 25637 [id number] [id number] [id number] 2 0 (02729) Medical Systems Inc Bag Decanter Microtek 1 2001S 305633 70742 278894 5 () Medical Inc. Medline Cath Cardinal 1 [id number] 201247 92190 507787 5 Pack Health ([id number]) SHEATH 5FR Terumo 1 [id number] 490072 282349 293970 4 0 [place] (PIM073) DIAGNOSTIC St [place] 1 504446 980139 421584 296331 3 0 WIRE .035 260cm J wire (059102) ACIST Hand Acist 1 28100 226733 706102 814667 5 Control Medical (83055) Systems Inc ACIST Manifold Acist 1 51035 765921 683542 122827 5 (27339) Medical Systems Inc DIAGNOSTIC Cardinal 1 [id number] 062233 92594 460113 3 0 Multipack 5Fr Health catheter set ([id number]) Tegaderm 4 x 4 3M 1 1626W 957886 609872 780162 5 (1626W) PERCUTANEOUS Cook Medical 1 F48450 440929 863101 5 ENTRY 19GA needle MULTIPACK Cardinal 1 363638 5 Pigtail 5 Fr Health catheter MULTIPACK JL Cardinal 1 062799 5 4.0 5Fr Health catheter MULTIPACK 3DRC Cardinal 1 853429 5 5Fr catheter Health DIAGNOSTIC AR Cardinal 1 [id number] 282610 838363 498030 2 0 2 MOD 5 Fr Health catheter ([id number]) SHEATH 6FR Terumo 1 KSW453 039621 644019 970713 4 0 [place] (VXZ823) INFLATOR Merit Merit 1 QQ1666 678243 913605 725120 1 5 GigaBryte (UG0159) CHOICE PT [place] 1 [id number] 644073 454179 504489 5 Extra Support Scientific 182cm wire ([id number]) CAL RX 4.0 x Medtronic 1 [id number] 71909 5991891 630491 5 [id number] 15 stent ([id number]) EXOSEAL 6Fr Cardinal 1 EX600 886723 605089 827918 1 0 (EX600) Health Signature Audit [place] Stage Time Signature Unsigned Intra-Procedure 05/05/2017 Amber Nix 9:09:32 AM RT(R) Signatures Monitor : Amber Nix Signature : RT Date : Time : [address] [address]
[~2017-05-05 04:03] MED LIST changes: +NOVOLOG100 U/M1 SC
[2017-05-05 04:50] LABS: APTT 30.7 SECONDS (22.8-39.4); BASOPHILS 0 % (0-2); EOSINOPHILS 1.4 % (0-7); HEMATOCRIT 37.2 % (36.0-48.0); HEMOGLOBIN 13.5 g/dL (12-16); INR 1.08 (0.85-1.17); LYMPHOCYTES 23.9 % (15-50); MCH 30.5 pg (26.0-34.0); MCHC 36.3 g/dL (31.0-37.0); MONOCYTES 9.1 % (2-11); NEUTROPHILS 64.6 % (40-80); PLATELET COUNT 103 10x3/uL (130-400); PROTIME 13.6 SECONDS (11.6-15.0); RBC 4.43 10x6/uL (4.00-5.40); RDW 14.5 % (11.5-14.5)
[2017-05-05 04:51] LABS: D-DIMER-QUANTITATIVE 0.39 ug/mLFEU (0.20-0.54)
[2017-05-05 04:52] LABS: ALBUMIN 3.8 g/dL (3.4-5.0); ALKALINE PHOSPHATASE 151 U/L (46-116); ALT (SGPT) 54 U/L (10-68); BILIRUBIN - TOTAL 0.63 mg/dL (0.2-1.3); CALC OSMOLALITY 281 mosm/kg (275-300); CALCIUM 9.1 mg/dL (8.5-10.1); CARBON DIOXIDE 26.4 mmol/L (21.0-32.0); CHLORIDE - SERUM 96 mmol/L (98-107); CREATININE - SERUM 0.6 mg/dL (0.6-1.3); GLUCOSE 380 mg/dL (74-106); PROTEIN - SERUM 7.6 g/dL (6.4-8.2); SODIUM 132 mmol/L (136-145); UREA NITROGEN 14 mg/dL (7-18); eGFR NON AFRICAN AMERICAN > 90 mL/min (90-120)
[2017-05-05 05:02] LABS: CHOL - HDL RATIO 5.7 ratio (2.3-4.1); CHOLESTEROL, TOTAL 224 mg/dL (0-200); CKMB 2.4 U/L (0.0-3.6); CREATINE KINASE 64 UL (21-215); HDL CHOLESTEROL 39 mg/dL (32-96); LDL CHOLESTEROL 108 mg/dL (0-100); LDL-HDL RATIO 2.8 ratio (1.5-3.5); PRO BNP 218 pg/mL (0-125); TRIGLYCERIDE 386 mg/dL (30-200)
[2017-05-05 05:03] LABS: TROPONIN-I < 0.017 ng/mL (0.000-0.060)
== END 2017-05-05 13:30 | disposition home or self-care (01) ==
LOC: D.CATH 04:03 → D.ER 04:03 → EDSTATUS 11:30 → D.CATH 13:30
PROVIDERS: Family Medicine
DX: I25.110 Atherosclerotic heart disease of native coronary artery with unstable angina pectoris (principal); Z95.5 Presence of coronary angioplasty implant and graft; I10 Essential (primary) hypertension; E78.5 Hyperlipidemia, unspecified; E11.9 Type 2 diabetes mellitus without complications; Z01.812 Encounter for preprocedural laboratory examination
CPT/HCPCS: 93459; C9600